=== PATIENT | male | born 1950 | race Caucasian/White ===

== ENCOUNTER → 2016-10-18 | Outpatient (CLI) | payer BC ==
[~2016-10-18] MED LIST: CEPH500C2 PO; HYDR-5688 PO; MULT-506 PO; PRAM0.129 PO
[2016-10-18 10:59] LABS: ALT/SGPT 27 U/L (12-78); BLOOD UREA NITROGEN 16 mg/dl (7-18); BUN/CREATININE RATIO 13.1 (10-20); CALCIUM 8.6 mg/dl (8.5-10.1); CARBON DIOXIDE 29 mmol/L (21-32); CHLORIDE 106 mmol/L (98-107); GLUCOSE 104 mg/dl (70-99); POTASSIUM 4.5 mmol/L (3.5-5.1); SODIUM 143 mmol/L (136-145)
[2016-10-18 11:02] LABS: ALB/GLOB RATIO 1.1 (0.9-2); ALKALINE PHOSPHATASE 94 U/L (45-117); AST/SGOT 19 U/L (15-37); CHOLESTEROL 173 mg/dl (0-200); CHOLESTEROL/HDL RATIO 3.8; HDL CHOLESTEROL 45 mg/dl; LDL CHOLESTEROL CALCULATED 78 mg/dl; TRIGLYCERIDES 250 mg/dl (0-150); VERY LOW DENSITY LIPOPROT CALC 50 mg/dl
== END | disposition home or self-care (01) ==
LOC: C.LAB1850 09:06
PROVIDERS: ATTEND Internal Medicine
DX: E78.1 Pure hyperglyceridemia (principal)

== ENCOUNTER → 2016-12-07 | Day surgery (SDC) | payer BC ==
[2016-12-02 13:47] VITALS: Ht 194.3 cm; Wt 100.0 kg
[~2016-12-07] VITALS: Ht 194.3 cm; Wt 100.0 kg
[~2016-12-07] MED LIST changes: +LIDOCAINE HCL 1% 20 ML VIAL ONE
--- NOTE | 2016-12-07 08:17 | History & Physical Bridge - [place] ---
H&P Re-Evaluation Bridge Note: I have examined the patient, reviewed the History & Physical and in the interval since the performance of the History & Physical I have noted the following changes of clinical significance: No changes noted
--- NOTE | 2016-12-07 08:20 | Discharge Instructions-SurgCtr ---
Discharge Instructions Date of Service December 07, 2016. Visit Reason for Visit: Epidermal Cyst Discharge Discharge Diagnosis / Problem: recurrent sebaceous cyst Discharge Goals Goal(s): Decrease discomfort, Improve function, Improve disease control Activity Recommendations Activity Limitations: as noted below Lifting Limitations: gradually increase as tolerated Exercise/Sports Limitations: until after follow-up appointment May Resume Sexual Activity: when tolerated Shower/Bathe: tomorrow Driving or Machine Use: no limitations SPECIAL CARE INSTRUCTIONS: * Cover incisions and change daily for comfort/drainage. * May use ibuprofen for pain as tolerated. * Expect some swelling and bruising. Call your doctor if: * Temperature above 101 degrees * Pain not relieved by pain medicine ordered * There is increased drainage or redness from any incision * You have any unanswered questions or concerns [phone]. FOLLOW UP VISIT: If not already scheduled, please call the office for a follow-up visit. for next week- some suture removal OFFICE PHONE NUMBER: Dr. Wynn Office Anesthesia . Post Anesthesia Instructions: If you have had General Anesthesia or IV Sedation: * Do not drive today. * Resume driving when surgeon permits. * Do not make important decisions or sign legal documents today. * Call surgeon for: 1. Temperature elevations greater than 101 degrees F. 2. Uncontrollable pain. 3. Excessive bleeding. 4. Persistent nausea and vomiting. 5. Medication intolerance (nausea, vomiting or rash). * For nausea and vomiting use only clear liquids such as: tea, soda, bouillon until nausea subsides, then gradually increase diet as tolerated. * If you have any concerns or questions, call your surgeon's office. If physician is unavailable and it is an emergency, call 911 or go to the nearest emergency room. . Diet Recommendations Home Diet: resume previous diet Pending Studies Studies pending at discharge: no Medical Emergencies . Who to Call and When: Medical Emergencies: If at any time you feel your situation is an emergency, please call 911 immediately. . Non-Emergent Contact Non-Emergency issues call your: Primary Care Provider, Surgeon . . "Provider Documentation" section prepared by Anthony Wynn. .
[2016-12-07 08:44] VITALS: BP 111/67; PULSE 65; TEMP 36.8; O2SAT 96
--- NOTE | 2016-12-07 08:55 | OPERATIVE REPORT ---
DATE OF OPERATION: 12/07/2016 PREOPERATIVE DIAGNOSIS: Recurrent sebaceous cyst. POSTOPERATIVE DIAGNOSIS: Same. NAME OF OPERATION: Excision of sebaceous cyst, 1.5 cm incision. STAFF SURGEON: Dr. Wynn. ANESTHESIA: 1% plain lidocaine. OPERATION AND FINDINGS: PROCEDURE: The patient was brought in the operating room and placed on the operating table in the prone position. His back was prepped and draped in usual fashion. He had a recurrent sebaceous cyst at an incision in the mid lower back. Skin and subcutaneous tissue were anesthetized using 1% plain lidocaine. An elliptical incision was made 1.5 cm around the site carrying dissection down through the dermis, excising the tissue. The tissue was then reapproximated using 4-0 nylon suture. Dressing applied and patient transferred to recovery room in stable condition. I attest to the content of the Intraoperative Record and any orders documented therein. Any exceptio ns are noted below.
== END | disposition home or self-care (01) ==
LOC: X.SURG 06:57
PROVIDERS: ATTEND Surgery
DX: L72.0 Epidermal cyst (principal); Z83.71 Family history of colonic polyps; Z80.42 Family history of malignant neoplasm of prostate

== ENCOUNTER → 2017-09-06 | Outpatient (CLI) | payer BC ==
[~2017-09-06] MED LIST changes: +CALC600T9 PO; -CEPH500C2 PO; -HYDR-5688 PO; -LIDOCAINE HCL 1% 20 ML VIAL ONE; +PRAM0.1212 PO; -PRAM0.129 PO
[2017-09-06 09:40] LABS: BASO % 0.3 %; BASO ABS # 0.02 K/uL (0-0.2); EOS ABS # 0.17 K/uL (0-0.5); HEMATOCRIT 43.5 % (42-52); HEMOGLOBIN 15.2 g/dL (14.0-18.0); IG# 0.03 K/uL (0.00-0.02); LYMPH % 24.3 %; LYMPH ABS # 1.39 K/uL (1.2-3.4); MEAN CELL VOLUME 88.8 fL (80-100); MEAN CORPUSCULAR HGB CONC 34.9 g/dl (32-36); MEAN PLATELET VOLUME 9.8 fL (7.4-10.4); MONO % 10.7 %; MONO ABS # 0.61 K/uL (0.11-0.59); NEUT % 61.2 %; PLATELET COUNT 237 K/uL (130-400); RED CELL DISTRIBUTION WIDTH CV 13.5 % (11.5-14.5); RED CELL DISTRIBUTION WIDTH SD 43.6 fL (36.4-46.3); WHITE BLOOD COUNT 5.72 K/uL (4.8-10.8)
[2017-09-06 09:55] LABS: HEMOGLOBIN A1C 5.5 % (4.5-5.6)
[2017-09-06 09:57] LABS: ALT/SGPT 31 U/L (12-78); AST/SGOT 17 U/L (15-37); BLOOD UREA NITROGEN 16 mg/dl (7-18); CALCIUM 9.1 mg/dl (8.5-10.1); CARBON DIOXIDE 28 mmol/L (21-32); CREATININE 1.29 mg/dl (0.60-1.40); GLUCOSE 105 mg/dl (70-99); POTASSIUM 3.9 mmol/L (3.5-5.1); SODIUM 139 mmol/L (136-145)
[2017-09-06 10:01] LABS: CHOLESTEROL 203 mg/dl (0-200); LDL CHOLESTEROL CALCULATED 102 mg/dl
== END | disposition home or self-care (01) ==
LOC: C.LAB 08:19
PROVIDERS: ATTEND Internal Medicine
DX: Z01.812 Encounter for preprocedural laboratory examination (principal); E78.00 Pure hypercholesterolemia, unspecified; R73.9 Hyperglycemia, unspecified; E53.8 Deficiency of other specified B group vitamins; E55.9 Vitamin D deficiency, unspecified; L27.0 Generalized skin eruption due to drugs and medicaments taken internally

== ENCOUNTER → 2017-09-13 | Day surgery (SDC) | payer BC ==
[2017-09-01 16:10] VITALS: Ht 195.6 cm; Wt 103.2 kg
[~2017-09-13] VITALS: Ht 195.6 cm; Wt 103.2 kg
[~2017-09-13] MED LIST changes: +ATROPINE SULFATE 0.1 MG/ML 5ML SYR IV PRN; +BUPIVACAINE 0.5 % 5 MG/1 ML MPF 30ML VIAL ONE; +CEFAZOLIN 2000MG IV PUSH 15 ML IV SCH; +CEPH500C2 PO; +EpHEDrine SULFATE INJ 50 MG/ML AMP IV PRN; +FENTANYL CITRATE INJ 50 MCG/1 ML 2 ML VIAL ONE; +HYDR-5688 PO; +HYDROCODONE/ACETAMIN 5/325MG TAB PO PRN; +IBUPROFEN 600 MG TAB PO PRN; +LACTATED RINGER'S 1000ML 1,000 ML IV SCH; +LIDOCAINE HCL 1% 20 ML VIAL ONE; +LIDOCAINE HCL 2% 2 ML VIAL (20MG/ML) ONE; +MIDAZOLAM HCL 1 MG/ML 2ML VIAL ONE; +PROPOFOL IV EMULSION 10 MG/ML 20 ML VIAL IV ONE; +SODIUM CHLORIDE 0.9% 1000ML 1,000 ML IV SCH
--- NOTE | 2017-09-13 06:50 | Discharge Instructions-SurgCtr ---
Discharge Instructions Date of Service Sep 13, 2017. Visit Reason for Visit: Upper Back Epidermoid Cyst Discharge Discharge Diagnosis / Problem: epidermoid cyst Discharge Goals Goal(s): Decrease discomfort, Improve function, Improve disease control Activity Recommendations Activity Limitations: as noted below Lifting Limitations: no more than 25 pounds Exercise/Sports Limitations: until after follow-up appointment May Resume Sexual Activity: when tolerated Shower/Bathe: tomorrow Driving or Machine Use: resume 1 day after discharge Anesthesia . Post Anesthesia Instructions: If you have had General Anesthesia or IV Sedation: * Do not drive today. * Resume driving when surgeon permits. * Do not make important decisions or sign legal documents today. * Call surgeon for: 1. Temperature elevations greater than 101 degrees F. 2. Uncontrollable pain. 3. Excessive bleeding. 4. Persistent nausea and vomiting. 5. Medication intolerance (nausea, vomiting or rash). * For nausea and vomiting use only clear liquids such as: tea, soda, bouillon until nausea subsides, then gradually increase diet as tolerated. * If you have any concerns or questions, call your surgeon's office. If physician is unavailable and it is an emergency, call 911 or go to the nearest emergency room. . Instructions / Follow-Up Instructions / Follow-Up SPECIAL CARE INSTRUCTIONS: * Cover incisions and change daily for comfort/drainage. * May use ibuprofen for pain as tolerated. * Expect some swelling and bruising. Call your doctor if: * Temperature above 101 degrees * Pain not relieved by pain medicine ordered * There is increased drainage or redness from any incision * You have any unanswered questions or concerns [phone]. FOLLOW UP VISIT: If not already scheduled, please call the office for a follow-up visit. for next week- wound check and some suture removal OFFICE PHONE NUMBER: Dr. Wynn Office Diet Recommendations Home Diet: resume previous diet Pending Studies Studies pending at discharge: no Medical Emergencies . Who to Call and When: Medical Emergencies: If at any time you feel your situation is an emergency, please call 911 immediately. . Non-Emergent Contact Non-Emergency issues call your: Primary Care Provider, Surgeon . . "Provider Documentation" section prepared by Anthony Wynn. .
--- NOTE | 2017-09-13 07:20 | [facility] Operative Report ---
Operative Report Operative Date Sep 13, 2017. Pre-Operative Diagnosis Upper Back Epidermoid Cyst Post-Operative Diagnosis Same as pre-op Procedure(s) Performed Upper Back Epidermoid Cyst Excision Surgeon Records Assistant Surgeon(s) None Estimated Blood Loss 5ML Findings scar tissue, h/o infection Specimens A.Upper back Epidermoid Cyst Drains None Anesthesia Type MAC Complication(s) none Disposition Recovery Room / PACU I attest to the content of the Intraoperative Record and any orders documented therein. Any exceptions are noted below.
[2017-09-13 07:29] VITALS: TEMP 36.8
--- NOTE | 2017-09-13 07:50 | Anesthesia Progress Nt - [facility] ---
Anesthesia Post Op Note Date & Time Sep 13, 2017 at 07:50 Vital Signs Pain Intensity: 0 Vital Signs Past 12 Hours Date Time Temp Pulse Resp B/P (MAP) Pulse Ox O2 Delivery O2 Flow Rate FiO2 09/13/17 07:29 36.8 66 16 144/83 (103) 94 Room Air 09/13/17 06:26 36.4 75 18 151/90 (110) 94 Room Air Notes Mental Status: alert / awake / arousable, participated in evaluation Pt Amnestic to Procedure: Yes Nausea / Vomiting: adequately controlled Pain: adequately controlled Airway Patency, RR, SpO2: stable & adequate BP & HR: stable & adequate Hydration State: stable & adequate Anesthetic Complications: no major complications apparent
[2017-09-13 08:00] VITALS: BP 109/71; PULSE 94; O2SAT 95
--- NOTE | 2017-09-13 08:02 | OPERATIVE REPORT ---
DATE OF OPERATION: 09/13/2017 NAME OF OPERATION: Excision of epidermoid cyst from the back. PREOPERATIVE DIAGNOSIS: Epidermoid cyst with a history of infection. POSTOPERATIVE DIAGNOSIS: Same. STAFF SURGEON: Anthony Wynn MD. ANESTHESIA: 1% plain lidocaine with sedation. DESCRIPTION OF PROCEDURE: The patient was brought into the operating room and placed on the operating table in the prone position. His back was then prepped and draped in the usual fashion. Using 1% plain lidocaine, skin and subcutaneous tissue around the area of previous drainage were anesthetized. Incision made in an elliptical fashion, carrying dissection down into the deep subcutaneous tissue, excising the tissue. It was approximately 2 x 1 cm in area. Deep tissue was reapproximated using 2-0 chromic suture and then the skin reapproximated using 4-0 nylon suture. Dressing applied and the patient transferred to recovery room in stable condition. I attest to the content of the Intraoperative Record and any orders documented therein. Any exception s are noted below.
== END | disposition home or self-care (01) ==
LOC: X.SURG 06:12
PROVIDERS: ATTEND Surgery
DX: L72.0 Epidermal cyst (principal); E78.00 Pure hypercholesterolemia, unspecified; E78.1 Pure hyperglyceridemia; G47.33 Obstructive sleep apnea (adult) (pediatric); E53.8 Deficiency of other specified B group vitamins; E55.9 Vitamin D deficiency, unspecified; Z83.6 Family history of other diseases of the respiratory system; Z80.1 Family history of malignant neoplasm of trachea, bronchus and lung; Z82.49 Family history of ischemic heart disease and other diseases of the circulatory system; Z80.42 Family history of malignant neoplasm of prostate

== ENCOUNTER 2019-01-04 17:48 | Observation (INO) ==
[2019-01-04] MEDS ORDERED: cefTRIAXone SODIUM 2,000 MG in DEXTROSE 5% 50 ML IV STA (18:15)
[2019-01-04 18:46] LABS: Basophils # (auto) 0.02 K/uL (0-0.2); Basophils % (auto) 0.3 %; Eosinophils % (auto) 2.5 %; Hematocrit (blood only) 39.3 % (42-52); Hemoglobin 13.3 g/dL (14.0-18.0); Immature Granulocytes # (auto) 0.03 K/uL (0.00-0.02); Immature Granulocytes % (auto) 0.4 %; Lymphocytes # (auto) 1.64 K/uL (1.2-3.4); Lymphocytes % (auto) 20.6 %; Mean Corpuscular Hgb Conc 33.8 g/dL (32-36); Mean Platelet Volume 9.1 fL (7.4-10.4); Monocytes # (auto) 1.17 K/uL (0.11-0.59); Monocytes % (auto) 14.7 %; Neutrophils % (auto) 61.5 %; Platelet Count 221 K/uL (130-400); RDW Coefficient of Variation 13.9 % (11.5-14.5); RDW Standard Deviation 46.2 fL (36.4-46.3); Red Blood Count 4.32 M/uL (4.7-6.1); White Blood Count 7.96 K/uL (4.8-10.8)
[2019-01-04 19:03] LABS: BUN Creatinine Ratio 13.6 (10-20); Calcium 9.1 mg/dl (8.5-10.1); Creatinine Clr Calc Pharmacy 73.4 ml/min; Est GFR (Non-African American) 60.4; Potassium 4.1 mmol/L (3.5-5.1)
--- NOTE | 2019-01-04 19:10 | Emergency Department Note ---
Entered by Carmita Khan acting as a scribe for Medhat Ashford DO History of Present Illness General Chief complaint: Skin Problem Stated complaint: CYST ON NECK Time Seen by Provider: 01/04/19 18:03 Source: patient Limitations: no limitations History of Present Illness Provider complaint: Skin Problem Onset (ago): month(s) 1 Location: neck Radiation: non-radiation Severity: similar to prior episodes (+cysts on back) Maximum Pain Intensity: 6 Exacerbated By: + movement (+moving neck) Associated symptoms: + other (+neck pain with movement) The patient is a 68 year old male who presents to the Emergency Room with complaints of a skin problem that began 1 month prior to arrival. The patient st ates that he has a lump on his neck and the patient states that it has doubled in size since 1 month ago. The patient states that it is painful to move his neck. The patient states that he had a US done 5 days prior to arrival in the ED. The patient states that Dr. Gupta-Internal Medicine recommended that the patient come to the ED. The patient states that he has a history of cysts that have gotten infected but states that the cysts were on his back. Home Medications Home Medications Medication Instructions Recorded Confirmed Type ibuprofen 600 mg tablet 600 mg PO Q6H PRN 12/20/18 01/04/19 History pramipexole 0.25 mg tablet 0.5 mg PO HS tab 12/20/18 01/04/19 History sildenafil (antihypertensive) 20 20 mg PO TID 12/20/18 01/04/19 History mg tablet Allergies Allergy/AdvReac Type Severity Reaction Status Date / Time No Known Allergies Allergy Unverified 01/04/19 18:07 Past Med/Surg History Medical History Hyperlipidemia Sebaceous cyst (Resolved) Lyme disease Surgical History History of excision of pilonidal cyst Family History Mother Lung cancer Father Lung cancer Other Coronary heart disease Prostate cancer Social History Preferred Language: Sammarinese Communication Ability: Effective Feels Safe at Home: Yes Smoking Status: Never smoker Hx Alcohol Use: No Hx Substance Use: No Review of Systems See HPI for pertinent positives & negatives. and A total of 10 systems reviewed and were otherwise negative Physical Exam Vital Signs Vital Signs - 24 hr 01/04/19 17:57 01/04/19 19:20 Temperature 36.9 C 37.0 C Temperature Source Oral Oral Sepsis Recent Fever Within 48 Hours No Sepsis New/Unexplained Change in Mental Status No Sepsis Action Taken by Nursing No Action Required Pulse Rate 87 Pulse Rate [Finger] 78 Respiratory Rate 18 20 Blood Pressure 143/80 H Blood Pressure [Left Arm] 120/59 L Blood Pressure Mean 101 Blood Pressure Mean [Left Arm] 79 Pulse Oximetry 98 99 Oxygen Delivery Method Room Air Room Air CONSTITUTIONAL/VITAL SIGNS: Reviewed / noted above. GENERAL: Non-toxic in appearance. INTEGUMENTARY: Warm, dry, and [place]. HEAD: Normocephalic. EYES: without scleral icterus or trauma. ENT/OROPHARYNX: clear and moist. Right lateral neck reveals some mild erythema, soft tissue induration, and mild tenderness. LYMPHADENOPATHY/NECK: Is supple without lymphadenopathy or meningismus. RESPIRATORY: Lungs clear and equal. CARDIOVASCULAR: Regular rate and rhythm. GI/ABDOMEN: Soft and nontender. No organomegaly or pulsatile mass. No rebound or guarding. Normal bowel sounds. EXTREMITIES: Warm and well perfused. BACK: No CVA tenderness. NEUROLOGICAL: Intact without focal deficits. PSYCHIATRIC: normal affect. MUSCULOSKELETAL: Normally developed with good muscle tone. Course 1805: The patient was evaluated in room B8, and a complete history and physical examination were performed. 0: I checked on the patient. The patient was updated on their imaging and lab results. 1939: I checked on the patient. The patient was updated on their imaging and lab results. 2019: I discussed the [facility] who states that the patient should be admitted on IV antibiotics by medicine services. 2045: I discussed the patient's case with Dr. Peyman [facility] Hospitalist who will evaluate the patient for further hospitalization. Consultations Consultation #1: Dr. Maximo Dey Otolaryngology Time: 20:20 Consultation #2: Dr. Peyman Block [facility] Hospitalist Time: 20:46 Administered Medications Discontinued Medications Ceftriaxone Sodium 2,000 mg/ (Dextrose) 70 mls @ 100 mls/hr IV NOW STA Stop: 01/04/19 18:56 Last Infusion: 01/04/19 19:48 Dose: 0 mls/hr Documented by: [id number] Admin: 01/04/19 19:16 Dose: 100 mls/hr Documented by: [id number] Medical Decision Making Differential Diagnosis Differential diagnosis: Etiologies such as cellulitis, abscess, osteomyelitis, MRSA infection, DVT, necrotizing fasciitis, dermatitis, drug eruption, as well as others were entertained. Medical Records Attestation: I reviewed the patient's medical records. Home Medications Current Medication List: was personally reviewed by de Laboratory Data Attestation: I reviewed the patient's lab results. Result diagrams: 01/04/19 18:31 01/04/19 18:31 Lab Results 01/04/19 01/04/19 Range/Units 18:31 18:31 WBC 7.96 (4.8-10.8) K/uL RBC 4.32 L (4.7-6.1) M/uL Hgb 13.3 L (14.0-18.0) g/dL Hct 39.3 L (42-52) % MCV 91.0 (80-100) fL MCH 30.8 (25-34) pg MCHC 33.8 (32-36) g/dL RDW Std Deviation 46.2 (36.4-46.3) fL RDW Coeff of Shukri 13.9 (11.5-14.5) % Plt Count 221 (130-400) K/uL MPV 9.1 (7.4-10.4) fL Immature Gran % (Auto) 0.4 % Neut % (Auto) 61.5 % Lymph % (Auto) 20.6 % [place] % (Auto) 14.7 % Eos % (Auto) 2.5 % Baso % (Auto) 0.3 % Immature Gran # (Auto) 0.03 H (0.00-0.02) K/uL Neut # (Auto) 4.90 (1.4-6.5) K/uL Lymph # (Auto) 1.64 (1.2-3.4) K/uL [place] # (Auto) 1.17 H (0.11-0.59) K/uL Eos # (Auto) 0.20 (0-0.5) K/uL Baso # (Auto) 0.02 (0-0.2) K/uL Sodium 144 (136-145) mmol/L Potassium 4.1 (3.5-5.1) mmol/L Chloride 107 (98-107) mmol/L Carbon Dioxide 31 (21-32) mmol/L Anion Gap 6.0 (3-11) BUN 17 (7-18) mg/dl Creatinine 1.23 (0.6-1.4) mg/dl Est Cr Clr Drug Dosing 73.4 ml/min Est GFR ( Amer) 70.0 Est GFR (Non-Af Amer) 60.4 BUN/Creatinine Ratio 13.6 (10-20) Glucose 107 H (70-99) mg/dl Calcium 9.1 (8.5-10.1) mg/dl Imaging Data Radiologist's Impression: Radiology results as stated below per my review and the radiologist's interpretation: NECK ULTRASOUND CLINICAL HISTORY: Right-sided neck pain and swelling. COMPARISON STUDY: Neck ultrasound December 30, 2018. FINDINGS: Deep to the right sternocleidomastoid muscle, note is made of a complex small elongated hypoechoic abnormality that measures 3.5 x 0.7 x 1.2 cm. This was not evident on exam of December 30, 2018. No significant adjacent hyperemia is noted. The adjacent soft tissues may be hyperechoic. A few adjacent smaller lymph nodes are noted. IMPRESSION: 3.5 x 0.7 x 1.2 cm complex small elongated fluid collection deep to the right sternocleidomastoid muscle. This is nonspecific and may reflect phlegmon, developing abscess or hematoma. Electronically signed by: Johnson Monroy M.D. 01/04/2019 7:24 PM Blood Pressure Blood Pressure Findings: Elevated blood pressure MDM Narrative The patient is a 68-year-old male who presents to the ED with a chief complaint of a increasing discomfort in his right lateral neck. The patient states that he had some discomfort there since early November. He had an ultrasound 5 days ago that showed a small cyst. He states that since that time, the size of the swelling has increased and he has some more discomfort in the area. He came in for evaluation of this. On my evaluation, he appears to have a cellulitic area in the left lateral neck. This could be related to an ingrown hair. The patient started on IV Rocephin. His CBC and chemistry panel was normal. A repeat ultrasound for comparison showed a 3.5 x 0.7 x 1.2 complex fluid collection deep to the right sternocleidomastoid muscle concerning for a phlegmon, developing abscess or hematoma. This was not present or has enlarged compared to the previous ultrasound 5 days ago. The patient was given IV Rocephin here. I spoke with Dr. Barnes, ENT specialist, about this patient. He recommends the patient be admitted for IV antibiotics, consultation with infectious disease and possibly drainage if abscess develops. I spoke with Dr. Morley, who will see the patient. Impression & Plan Cellulitis and abscess of neck Discharge Plan Visit Data Chief Complaint: Skin Problem Stated Complaint: CYST ON NECK ED Provider: Medhat Ashford Discharge Problem: Cellulitis and abscess of neck Forms Stand Alone Forms: My [facility] Prescriptions Prescriptions: No Action ibuprofen 600 mg tablet 600 mg PO Q6H PRN (Reason: Pain) RF: 0 pramipexole 0.25 mg tablet 0.5 mg PO HS RF: 0 sildenafil (antihypertensive) 20 mg tablet 20 mg PO TID RF: 0 The scribe's documentation has been prepared under my direction and personally reviewed by me in its entirety. I confirm that the note above accurately reflec ts all work, treatment, procedures, and medical decision making performed by me.
--- NOTE | 2019-01-04 19:26 | Ultrasound Report ---
NECK ULTRASOUND CLINICAL HISTORY: Right-sided neck pain and swelling. COMPARISON STUDY: Neck ultrasound December 30, 2018. FINDINGS: Deep to the right sternocleidomastoid muscle, note is made of a complex small elongated hyp oechoic abnormality that measures 3.5 x 0.7 x 1.2 cm. This was not evident on exam of December 30, 2018. No significant adjacent hyperemia is noted. The adjacent soft tissues may be hyperechoic. A few adjac ent smaller lymph nodes are noted. IMPRESSION: 3.5 x 0.7 x 1.2 cm complex small elongated fluid collection deep to the right sternoclei domastoid muscle. This is nonspecific and may reflect phlegmon, developing abscess or hematoma. Electronically signed by: Johnson Monroy M.D. 01/04/2019 7:24 PM
[2019-01-04] MEDS ORDERED: MAGNESIUM HYDROXIDE SUSP 30 ML UDC PO PRN (20:58)
[2019-01-04] MEDS ORDERED: POLYETHYLENE (MIRALAX) 17 GM PACK PO PRN (20:58)
[2019-01-04] MEDS ORDERED: ZOLPIDEM TARTRATE 5 MG TAB PO PRN (20:58)
[2019-01-04] MEDS ORDERED: ACETAMINOPHEN 325 MG TAB PO PRN (20:58)
[2019-01-04] MEDS ORDERED: VANCOMYCIN CONSULT ACTIVE PRN (20:58)
[2019-01-04] MEDS ORDERED: ONDANSETRON INJ 2 MG/ML 2 ML VIAL IV PRN (20:58)
[2019-01-04] MEDS ORDERED: ALUMINUM/MAGNESIUM SUSP 30 ML UDC PO PRN (20:58)
--- NOTE | 2019-01-04 21:22 | History & Physical Report ---
Date of Service January 04, 2019 Assessment & Plan (1) Cellulitis and abscess of neck: 68 y/o M Hx MATT, RLS. Has had R neck pain which has been progressive for 2 weeks. He thought this was triggered by sleeping on a firm pillow at a hotel a few weeks ago. He visited his primary MD on 12/20 and then again on 01/03. There was concern for a sternocleidomastoid rupture due to swelling of the area and he was sent for an ultrasound. The results demonstrated a complex small elongated fluid collection deep to the right sternocleidomastoid muscle which may reflect a phlegmon, developing abscess or hematoma. the pt has not had any rigors or fevers. He is admitted for IV antibiotics and evaluation by the head and neck surgeon. 1) Suspected abscess of R neck - to be evaluated by surgery and ID. Placed on Clindamycin and Vanc. Analgesics/antiinflammatories provided. 2) RLS - cont Mirapex 3) MATT - has brought his own CPAP Full code - SCDs Total time for this admit including review of labs, meds, imaging, records - discussion with pt and ER attendning - 36 min History of Present Illness Chief Complaint: R neck pain and swelling Primary Care Provider: Ambrocio Gupta MD 68 y/o M Hx MATT, RLS. Has had R neck pain which has been progressive for 2 weeks. He thought this was triggered by sleeping on a firm pillow at a hotel a few weeks ago. He visited his primary MD on 12/20 and then again on 01/03. There was concern for a sternocleidomastoid rupture due to swelling of the area and he was sent for an ultrasound. The results demonstrated a complex small elongated fluid collection deep to the right sternocleidomastoid muscle which may reflect a phlegmon, developing abscess or hematoma. the pt has not had any rigors or fevers. He is admitted for IV antibiotics and evaluation by the head and neck surgeon. PMH: 1) MATT 2) RLS Denies prior surgery Social: Does not drink or smoke, retired. Family: Both parents due to lung [place] Allergies Allergy/AdvReac Type Severity Reaction Status Date / Time No Known Allergies Allergy Unverified 01/04/19 18:07 Home Medications Home Medications Medication Instructions Recorded Confirmed Type ibuprofen 600 mg tablet 600 mg PO Q6H PRN 12/20/18 01/04/19 History pramipexole 0.25 mg tablet 0.5 mg PO HS tab 12/20/18 01/04/19 History sildenafil (antihypertensive) 20 20 mg PO TID 12/20/18 01/04/19 History mg tablet Past Med/Surg History Medical History Hyperlipidemia Sebaceous cyst (Resolved) Lyme disease Surgical History History of excision of pilonidal cyst Family History Mother Lung cancer Father Lung cancer Other Coronary heart disease Prostate cancer Social History Preferred Language: Frisian Communication Ability: Effective Feels Safe at Home: Yes Smoking Status: Never smoker Hx Alcohol Use: No Hx Substance Use: No Review of Systems Review of Systems: Gen: Denies fevers, night sweats, rigors, fatigue, malaise, weight loss/gain ENT: Denies congestion, throat pain, hearing loss - R neck pain and swelling as above Eyes: Denies acute visual changes CV: Denies CP, palpitations Pulmonary: Denies SOB, cough, wheezing GI: Denies N/V, diarrhea, constipation Neuro: Denies acute or unilateral weakness, acute gait impairment, headache or acute visual changes Endocrine: Denies polydipsia, polyuria Skin: Some erythema on R neck Physical Exam Physical Exam: General: AAO x 3, no distress Eyes: ELIZABETH, EOMI Head and neck: Normocephalic, atraumatic, No JVD, neck is supple. Chest/heart: Nontender, S1,2, RRR, no murmurs, no gallops Lungs: CTAB, no wheezing or crackles Abdomen: Nontender, nondistended, BS+ Neuro: AAO x 3, speech is clear, no unilateral weakness or loss of sensation, coordination intact Musculoskeletal: There is swelling, erythema and tenderness of the R neck Skin: No acute rashes or ulcers Extremities: No clubbing, cyanosis, edema Results & Data Vital Signs (Past 12 Hours) Vital Signs Temp Pulse Pulse Resp BP BP Pulse Ox 01/04/19 19:20 98.6 F 78 20 120/59 L 99 01/04/19 17:57 98.4 F 87 18 143/80 H 98 Diagnostic Findings US of neck: 3.5 x 0.7 x 1.2 cm complex small elongated fluid collection deep to the right sternocleidomastoid muscle. This is nonspecific and may reflect phlegmon, developing abscess or hematoma. PG Care Time/CCT Total # of Minutes Spent Total Time Spent with Patient: Total time spent is greater than 50% in coordination of care (as documented) at patient's floor/unit and/or counseling patient:
[2019-01-04] MEDS ORDERED: VANCOMYCIN HCL 2,500 MG in SODIUM CHLORIDE 0.9% 500 ML IV ONE (22:00)
[2019-01-04] MEDS ORDERED: TRAMADOL HCL 50 MG TABLET PO PRN (22:14)
[2019-01-04] MEDS ORDERED: KETOROLAC TROMETHAMINE 15 MG/ML VIAL IV PRN (22:14)
[2019-01-04] MEDS ORDERED: Nursing to Pharmacy Communication ONE (22:21)
[2019-01-04] MEDS ORDERED: PRAMIPEXOLE DIHYDROCHLO 0.25 MG TAB PO SCH (23:00)
[2019-01-04] MEDS: CLINDAMYCIN 600 MG in DEXTROSE 5% 50 ML IV SCH (23:42)
[2019-01-05] MEDS: D5W AND LACTATED RINGERS 1,000 ML IV SCH ×2 (02:22→08:36)
[2019-01-05] MEDS: CLINDAMYCIN 600 MG in DEXTROSE 5% 50 ML IV SCH ×3 (05:49→22:02)
--- NOTE | 2019-01-05 08:42 | Pharmacy Report ---
Pharmacy Abx Initial Consult - Date of Service January 05, 2019 - Pharmacy Dosing Scope Date of Consult: 01/04/19 Consultation requested by: Dr. Morley Pharmacy is consulted to initiate vancomycin IV dosing therapy, order appropriate labs and adjust drug dose/frequency. - Subjective The patient is a 68 year old M admitted on 01/04/19 20:58 with a possible neck abscess. - Objective Height: 6 ft 5 in Weight: 102.5 kg Vital Signs (Past 12hrs): Vital Signs Temp Pulse Resp BP Pulse Ox 01/05/19 07:21 36.9 C 77 18 118/71 97 01/04/19 22:29 36.6 C 77 20 149/88 H 99 01/04/19 22:14 36.6 C 77 20 149/88 H 99 01/04/19 21:14 80 18 158/92 H 99 Lab Results (24hrs): Laboratory Tests (24 Hours) 01/04/19 01/04/19 18:31 18:31 WBC 7.96 Neut # (Auto) 4.90 Creatinine 1.23 Est Cr Clr Drug Dosing 73.4 - Risk Factors for Resistance no known risk factors for resistance - Assessment & Plan Assessment 68 year old M with a possible neck abscess seen on CT scan. Plan vancomycin for treatment of neck abscess Vancomycin IV * Estimated PK Parameters: Vd 0.7 L/kg, Mirza 0.065 hr-1, t1/2 10.7 hr * Loading dose: 2500 mg (25 mg/kg) * Maintenance dose: 1500 mg IV (14.6 mg/kg) every 12 hours * Goal trough level for abscess with no risk factors for MRSA: ~15 mcg/mL * Trough level ordered for 01/06/19 Pharmacy will continue to follow and will adjust dose/frequency as necessary. Thank you.
[2019-01-05] MEDS: VANCOMYCIN HCL 1,500 MG in SODIUM CHLORIDE 0.9% 500 ML IV SCH ×2 (10:46→22:02)
--- NOTE | 2019-01-05 10:58 | Infectious Disease Consult ---
Date of Consultation January 05, 2019 Assessment & Plan (1) Cellulitis and abscess of neck: no evidence of cellulitis currently but pt does report improvement since starting abx. Surgery eval pending, continue IV abx pending surgical plan. he is anxious to go home, if he is to be d/c would suggest Clinda 300mg po tid x 14 days. History of Present Illness Attending Physician: Moshe Wilcox pt admitted after ultrasoun from 01/04 revealed a right SCM collection measuring 3.5x0,7x1.2 cm. He had a recent ultrasound as an outpatient on 12/30 which was negative for collection. He states he had neck pain starting in November - thought he pulled a muscle, saw pcp was given steroids and muscle relaxer, took full course, no significant improvement. followed back with pcp and underwent ultrasound on 12/30 - no abscess/collection noted. He went to [place] last week on vacation and was feeling well. he was then told by pcp upon return home to have repeat imaging, this was done yesterday and collection noted, admitted for IV abx and head and neck surgery eval, npo pending eval. placed on vanco and clinda and tolerating well. States swelling in neck much improved today, afebrile since admission. no decreased rom in neck, denies pain. no open areas, no trauma to area, no bleeding or drainage noted. no oral pain. wbc 7.9, no cultures obtained. pt asking to be d/c to home as he has plans to travel with to [place] this weekend for a high school reunion. Currently denies f/c. no cough, cp, sob, no difficulty swallowing, no pain with neck movement, no abd pain, no n/v/d. Allergies Allergy/AdvReac Type Severity Reaction Status Date / Time No Known Allergies Allergy Unverified 01/04/19 18:07 Home Medications Home Medications Medication Instructions Recorded Confirmed Type ibuprofen 600 mg tablet 600 mg PO Q6H PRN 12/20/18 01/04/19 History pramipexole 0.25 mg tablet 0.5 mg PO HS tab 12/20/18 01/04/19 History sildenafil (antihypertensive) 20 20 mg PO TID 12/20/18 01/04/19 History mg tablet Patient History Medical History Arthritis DJD (degenerative joint disease) Knees Hyperlipidemia MATT (obstructive sleep apnea) Sebaceous cyst (Resolved) Lyme disease Surgical History History of excision of pilonidal cyst Family History Mother Lung cancer Father Lung cancer Other Coronary heart disease Prostate cancer Social History Preferred Language: Pakistani Communication Ability: Effective Exercise Physiology Professor Required: No Beliefs That Will Affect Care: None Current Living Situation: Spouse Other Information That Helps Us Care for You: No Feels Safe at Home: Yes Safety Concerns: Feels Safe At This Time Smoking Status: Never smoker Do You Dip or Chew Tobacco: No Second Hand Exposure: Yes (as a child) Hx Alcohol Use: No Hx Substance Use: No Review of Systems Review of Systems: All systems reviewed & are unremarkable except as noted in HPI & below Physical Exam Constitutional: WD/WN, vitals as above Eyes: PERRL, conjunctivae normal, anicteric sclerae ENMT: external ear and nose normal, oropharynx normal Neck: trachea midline, no thyromegaly right neck min swelling, no open areas, no warmth, non tender, no eryhtema, no induration Respiratory: normal respiratory effort, lungs clear to auscultation Cardiovascular: RRR, no murmur, no edema Gastrointestinal (Abdomen): normal bowel sounds, soft, nontender, no hepatosplenomegaly Musculoskeletal: no cyanosis or clubbing, extremities motor strength 5/5 Skin: no rashes, warm and dry Psychiatric: A+Ox3, euthymic affect Results & Data Vital Signs (Past 12 Hours) Vital Signs Temp Pulse Resp BP Pulse Ox 01/05/19 07:21 36.9 C 77 18 118/71 97
[2019-01-05] MEDS ORDERED: PRAMIPEXOLE DIHYDROCHLO 0.25 MG TAB PO SCH (21:00)
--- NOTE | 2019-01-05 23:22 | Hospitalist Progress Note ---
Date of Service January 05, 2019 Assessment & Plan (1) Cellulitis and abscess of neck: 68 y/o M Hx MATT, RLS. Has had R neck pain which has been progressive for 2 weeks. He thought this was triggered by sleeping on a firm pillow at a hotel a few weeks ago. He visited his primary MD on 12/20 and then again on 01/03. There was concern for a sternocleidomastoid rupture due to swelling of the area and he was sent for an ultrasound. The results demonstrated a complex small elongated fluid collection deep to the right sternocleidomastoid muscle which may reflect a phlegmon, developing abscess or hematoma. the pt has not had any rigors or fevers. He is admitted for IV antibiotics and evaluation by the head and neck surgeon. 1) Suspected abscess of R neck - to be evaluated by surgery and ID. Placed on Clindamycin and Vanc. Analgesics/antiinflammatories provided. Appreciate input from ID. WILL CONTIUE ON ANTIBIOTICS, IF HE CONTIUES TO IMPROVE OVERNIGHT, THEN WILL DISCHARGE IN THE MORNING. Patient will followup with ENT NEXT TUESDAY. 2) RLS - cont Mirapex 3) MATT - has brought his own CPAP Full code - SCDs Spent 35 minutes in management of patient. Subjective This is a pleasant 61-year-old male who is here for neck swelling. Patient reports that today his neck is less swollen and his pain has decreased on his right side. Patient denies any difficulty swallowing fever chills nausea vomiting. Patient is accompanied by his who has multiple questions about his condition. These questions were answered to her satisfaction. Patient and are interested in being discharged tomorrow because they would like to be able to attend their 50th high school reunion in [place] tomorrow night if possible. I explained to the family that ENT will follow up with them as an outpatient in about 7 days as they would prefer conservative management. Review of Systems Review of Systems: Gen: Denies fevers, night sweats, rigors, fatigue, malaise, weight loss/gain ENT: Denies congestion, throat pain, hearing loss - R neck pain and swelling as above Eyes: Denies acute visual changes CV: Denies CP, palpitations Pulmonary: Denies SOB, cough, wheezing GI: Denies N/V, diarrhea, constipation Neuro: Denies acute or unilateral weakness, acute gait impairment, headache or acute visual changes Endocrine: Denies polydipsia, polyuria Skin: Some erythema on R neck Physical Exam Physical Exam: General: AAO x 3, no distress Eyes: ELIZABETH, EOMI Head and neck: Normocephalic, atraumatic, No JVD, neck is supple. Mild swelling on right side, no erythema noted, non tender Chest/heart: Nontender, S1,2, RRR, no murmurs, no gallops Lungs: CTAB, no wheezing or crackles Abdomen: Nontender, nondistended, BS+ Neuro: AAO x 3, speech is clear, no unilateral weakness or loss of sensation, coordination intact Musculoskeletal: There is swelling, erythema and tenderness of the R neck Skin: No acute rashes or ulcers Extremities: No clubbing, cyanosis, edema Results & Data Vital Signs (Past 12 Hours) Vital Signs Temp Pulse Resp BP Pulse Ox 01/05/19 16:04 36.9 C 84 20 126/74 98 PG Care Time/CCT Total # of Minutes Spent Total Time Spent with Patient: Total time spent is greater than 50% in coordination of care (as documented) at patient's floor/unit and/or counseling patient:
[2019-01-06 06:47] LABS: Creatinine Clr Calc Pharmacy 75.9 ml/min; Est GFR (African American) 72.8; Est GFR (Non-African American) 62.8
[2019-01-06] MEDS ORDERED: CLINDAMYCIN HCL 150 MG CAP PO SCH ×2 (07:00)
--- NOTE | 2019-01-11 10:39 | Discharge Summary ---
Date of Service January 06, 2019 Admission HPI Per Admitting Provider 68 y/o M Hx MATT, RLS. Has had R neck pain which has been progressive for 2 weeks. He thought this was triggered by sleeping on a firm pillow at a hotel a few weeks ago. He visited his primary MD on 12/20 and then again on 01/03. There was concern for a sternocleidomastoid rupture due to swelling of the area and he was sent for an ultrasound. The results demonstrated a complex small elongated fluid collection deep to the right sternocleidomastoid muscle which may reflect a phlegmon, developing abscess or hematoma. the pt has not had any rigors or fevers. He is admitted for IV antibiotics and evaluation by the head and neck surgeon. PMH: 1) MATT 2) RLS Denies prior surgery Social: Does not drink or smoke, retired. Family: Both parents due to lung CA Principal Diagnosis Abscess of neck Discharge Exam General: AAO x 3, no distress Eyes: ELIZABETH, EOMI Head and neck: Normocephalic, atraumatic, No JVD, neck is supple. Mild swelling on right side, no erythema noted, non tender Chest/heart: Nontender, S1,2, RRR, no murmurs, no gallops Lungs: CTAB, no wheezing or crackles Abdomen: Nontender, nondistended, BS+ Neuro: AAO x 3, speech is clear, no unilateral weakness or loss of sensation, coordination intact Musculoskeletal: There is decreased swelling, erythema and tenderness of the R neck Skin: No acute rashes or ulcers Extremities: No clubbing, cyanosis, edema Discharge Data Allergies Allergy/AdvReac Type Severity Reaction Status Date / Time No Known Allergies Allergy Unverified 01/04/19 18:07 Consultations 01/04/19 20:39 ED Decision to Admit Stat 01/04/19 22:14 Consult Infectious Diseases Routine Consult Otolaryngology (Head and Neck) Routine Ordered Studies 01/04/19 18:10 soft tissue head and neck Stat Hospital Course (1) Cellulitis and abscess of neck: 68 y/o M Hx MATT, RLS. Has had R neck pain which has been progressive for 2 weeks. He thought this was triggered by sleeping on a firm pillow at a hotel a few weeks ago. He visited his primary MD on 12/20 and then again on 01/03. There was concern for a sternocleidomastoid rupture due to swelling of the area and he was sent for an ultrasound. The results demonstrated a complex small elongated fluid collection deep to the right sternocleidomastoid muscle which may reflect a phlegmon, developing abscess or hematoma. the pt has not had any rigors or fevers. He is admitted for IV antibiotics and evaluation by the head and neck surgeon. 1) Suspected abscess of R neck - to be evaluated by surgery and ID. Placed on Clindamycin and Vanc. Analgesics/antiinflammatories provided. Appreciate input from ID. On day of discharge, patient will be placed on clidamycin by mouth. Swelling has decreased in size. Will followup with ENT NEXT TUESDAY. 2) RLS - cont Mirapex 3) MATT - has brought his own CPAP Full code - SCDs Total Time Total Time Spent Total Time Spent (In Minutes): 35 Total Time Includes: Examination of the Patient, Discharge Planning and Medication Reconciliation Discharge Plan Discharge Items Patient Disposition: Home - Self-Care Reason For Visit: ABSCESS ON NECK Discharge Diagnosis: inflammation of neck/ possible infection Discharge Goals: Decrease discomfort Activity: Resume your previous activity Non-emergency contact: Primary Care Provider Call non-emergency contact if: you have any medication questions Follow-up/Referrals: ProAmbrocio MD [Primary Care Provider] - Ady Pressley MD [Surgeon] - 01/12/19 10:15 am (An appt. was made for you with Dr. Pressley next January 12 at 10:15am.) Diet: Regular Addtl Provider Instructions: Take antibiotics with meals. Followup with ENT in 6 days. Prescriptions: New clindamycin HCl 150 mg Capsule 300 mg PO Q6H 8 Days Qty: 64 RF: 0 No Action ibuprofen 600 mg tablet 600 mg PO Q6H PRN (Reason: Pain) Qty: 40 RF: 1 pramipexole 0.25 mg tablet 0.5 mg PO HS Qty: 270 RF: 3 sildenafil (antihypertensive) 20 mg tablet 20 mg PO TID Qty: 20 RF: 3 Stand-Alone Forms: [facility] Discharge Orders: Discharge Order (Routine); Ordered 01/06/19 Ordered By: Moshe Wilcox Admission Data Admit Date/Time: 01/04/19 20:58 Attending Provider: Moshe Wilcox Admit Provider: Ruddy Morley Primary Care Provider: Ambrocio Gupta Other Providers: Ruddy Morley ; Justus Roth ; Ady Pressley Service: Medical Other Interventions: Discharge Summary Assessment (RN) Last Done: 01/06/19 09:05 DC Date/Time DO NOT enter until pt leaves facility: 01/06/19 10:25
== END 2019-01-06 10:25 | disposition home or self-care (01) ==
LOC: ED 17:48 → 4E 17:48 → SUATTDRO 20:58 → 4E 21:21
DX: L03.221 Cellulitis of neck; L02.11 Cutaneous abscess of neck; E78.5 Hyperlipidemia, unspecified; M19.90 Unspecified osteoarthritis, unspecified site; G47.33 Obstructive sleep apnea (adult) (pediatric)

== ENCOUNTER 2023-07-26 06:47 | Observation (INO) ==
--- NOTE | 2023-07-07 15:57 | PAT Medication Instructions ---
Medication Instructions Date of Service July 07, 2023 Home Medications Medication Instructions Recorded CPAP Machine #1 ea 02/19/21 sildenafil 50 mg tablet 50 mg PO DAILY PRN sexual activity 03/25/22 #10 tabs naproxen 500 mg tablet 500 mg PO BID HO prophylaxis for 3 12/27/22 weeks #60 tabs ibuprofen 600 mg tablet 600 mg PO TID PRN pain #90 tabs 07/01/23 sildenafil 50 mg tablet 50 mg PO DAILY PRN sexual activity naproxen 500 mg tablet 500 mg PO BID HO prophylaxis for 3 weeks folic acid 1 mg tablet 1 mg PO QAM ibuprofen 600 mg tablet 600 mg PO TID PRN pain Fish Oil 1 cap PO QAM Vitamin B-12 1 tab PO QAM Vitamin C 1 tab PO QAM Vitamin D3 1 cap PO QAM iron 1 cap PO QAM methotrexate sodium 2.5 mg tablet 2.5 mg PO UD ASK your surgeon for instructions naproxen 500 mg tablet 500 mg PO BID HO prophylaxis for 3 weeks ibuprofen 600 mg tablet 600 mg PO TID PRN pain ASK your prescriber and surgeon methotrexate sodium 2.5 mg tablet 2.5 mg PO UD STOP taking 2 weeks before surgery Fish Oil 1 cap PO QAM STOP taking 24 hours before surgery sildenafil 50 mg tablet 50 mg PO DAILY PRN sexual activity DO NOT take the morning of surgery folic acid 1 mg tablet 1 mg PO QAM Vitamin B-12 1 tab PO QAM Vitamin C 1 tab PO QAM Vitamin D3 1 cap PO QAM iron 1 cap PO QAM OTHERWISE NOTHING TO EAT OR DRINK AFTER MIDNIGHT Other Notes If you have any questions please call us at [phone] or [phone] or [phone] or [phone]
--- NOTE | 2023-07-12 09:21 | Anesthesiology Consultation ---
Date of Service July 12, 2023 Assessment & Plan (1) Encounter for pre-operative examination: - Outpatient joint assessment: Patient is currently scheduled for inpatient pathway. If re-evaluated and patient/surgeon requests outpatient pathway, patient is acceptable candidate for outpatient joint program from anesthesia standpoint pending surgeon's office assessment of pt motivation/support/completion of same day joint program preop requirements. Chart Review Chart Review: Acceptable Risk for Surgery and Patient seen in Pre Admission Testing Teaching & Discussion Pre-Anesthesia Teaching/Discussion Notes: Instructed NPO after midnight before surgery, except medications with 15 cc of water. Medication instructions provided according to the PAT guidelines. History Surgery Operation Date: 07/26/23 12:30 Proposed Procedures p Right Total Knee Arthroplasty - Ankur Ignacio MD Height/Weight Height: 6 ft 4 in Weight: 104.6 kg Allergies Allergy/AdvReac Type Severity Reaction Status Date / Time No Known Allergies Allergy Verified 07/07/23 11:35 Medications Home Medications Medication Instructions Recorded Confirmed Last Taken CPAP Machine #1 ea 02/19/21 04/19/23 Unknown sildenafil 50 mg tablet 50 mg PO DAILY PRN sexual activity 03/25/22 07/07/23 Unknown #10 tabs naproxen 500 mg tablet 500 mg PO BID HO prophylaxis for 3 12/27/22 07/07/23 Unknown weeks #60 tabs folic acid 1 mg tablet 1 mg PO QAM 04/04/23 07/07/23 Unknown ibuprofen 600 mg tablet 600 mg PO TID PRN pain #90 tabs 07/01/23 07/07/23 Unknown Fish Oil 1 cap PO QAM 07/07/23 07/07/23 Unknown Vitamin B-12 1 tab PO QAM 07/07/23 07/07/23 Unknown Vitamin C 1 tab PO QAM 07/07/23 07/07/23 Unknown Vitamin D3 1 cap PO QAM 07/07/23 07/07/23 Unknown iron 1 cap PO QAM 07/07/23 07/07/23 Unknown methotrexate sodium 2.5 mg tablet 2.5 mg PO UD 07/07/23 07/07/23 Unknown Additional Notes: Patient was instructed and it was corrected on medication instruction sheet provided to patient that methotrexate is to be stopped 7 days before surgery if approved by prescribing provider. Patient verbalized understanding, denied questions or concerns. 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 Exercise / Class Metabolic Activity II 4-5 Yardwork/Stairs/Walk up hill (denies chest discomfort or shortness of breath with 1 FOS) Past Family History Family History Mother Eczema Lung cancer COPD (chronic obstructive pulmonary disease) Father Colon cancer Lung cancer Stroke Uncle Heart disease Myocardial infarction Sister Breast cancer Aunt Heart disease Other Coronary heart disease No family history of adverse response to anesthesia Prostate cancer Past Surgical History Surgical History History of removal of cyst (03/31/21) Excision of 2 cm epidermoid cyst from the back. Dr. Wynn 03-31-2021 Hx of excision of epidermal inclusion cyst (01/13/21) Excision of epidermoid cyst from the left posterior shoulder area. Dr. Wynn History of incision and drainage neck abscess History of colonoscopy H/O eye surgery (~2014) laser surgery to repair a broken eye vessel. [facility] History of tonsillectomy Hx of excision of epidermal inclusion cyst History of excision of pilonidal cyst Past Anesthesia History No Hx of Anesthesia Complications and No Family Hx of Anesthesia Complications History of PONV No Hx of PONV and No Hx of Motion Sickness Social History Smoking Status: Never smoker Do You Dip or Chew Tobacco: No Hx Alcohol Use: Yes Alcohol type: beer and wine alcohol intake frequency: a few times a month Hx Substance Use: No substance use type: does not use Review of Systems Patient denies chest pain, shortness of breath, dyspnea on exertion, reflux, fever, chills, cough, wheezing, or palpitations. Physical Exam Vital Signs Vitals BP 110/70 P 80 TEMP 98.8 SP02 95% on RA RESP 18 Physical Patient resting comfortably in chair in no acute distress, alert and oriented, responding appropriately throughout visit Full cervical extension range of motion without pain TMD 3.5 finger breadths Mallampati Score 2 Dentition: several caps/crowns, denies chipped or loose teeth, implants or bridges Lungs: normal respiratory effort. Good air movement, clear throughout to auscultation, no adventitious breath sounds Cardiac: regular rate and rhythm, no murmurs noted Carotid arteries: negative bruit bilat Lab Results Anesthesia Preop Results Results Anesthesia Widget: WBC 6.35 K/ul (4.8-10.8) 06/27/23 Hgb 12.9 g/dl (14.0-18.0) L 06/27/23 Hct 39.2 % (42.0-52.0) L 06/27/23 Plt 351 K/uL (130-400) 06/27/23 Na 138 mmol/L (136-145) 06/27/23 K 4.2 mmol/L (3.5-5.1) 06/27/23 Cl 105 mmol/L (98-107) 06/27/23 CO2 27 mmol/L (21-32) 06/27/23 BUN 16 mg/dl (6-23) 06/27/23 Creat 0.94 mg/dl (0.6-1.4) 06/27/23 Glucose Level 110 mg/dl (70-99(Fasting)) H 06/27/23 PT 9.9 Seconds (9.0-12.0) 07/12/23 PTT 24 Seconds (21-31) 07/12/23 INR 0.9 (0.9-1.1) 07/12/23 Blood Type A Negative 07/12/23 Antibody Screen NEGATIVE 07/12/23 Testing Electrocardiogram Date: 07/12/23 NSR, rate 75 bpm Chest X-Ray Date: 07/12/23 Lung volumes are normal. There is no consolidation to suggest pneumonia. Left lower lobe reticulonodular interstitial thickening is present. There is no pneumothorax or pleural effusion. Cardiac size is normal. Mediastinal contours are normal. There is no evidence for pulmonary edema. IMPRESSION: 1. No acute cardiopulmonary findings. 2. Left lower lobe reticulonodular interstitial thickening which is likely chronic. Other Testing Carotid doppler 09/07/22 1. There is no sonographic evidence of hemodynamically significant stenosis in the right or left carotid arterial system. 2. Antegrade flow is shown in the vertebral arteries.
[~2023-07-26 06:47] MED LIST changes: +ACETAMINOPHEN 500 MG TAB PO SCH; -ATROPINE SULFATE 0.1 MG/ML 5ML SYR IV PRN; -BUPIVACAINE 0.5 % 5 MG/1 ML MPF 30ML VIAL ONE; -CALC600T9 PO; -CEFAZOLIN 2000MG IV PUSH 15 ML IV SCH; -CEPH500C2 PO; +CeleBREX 200 MG CAP PO SCH; -EpHEDrine SULFATE INJ 50 MG/ML AMP IV PRN; +FAMOTIDINE 20 MG TAB PO SCH; -FENTANYL CITRATE INJ 50 MCG/1 ML 2 ML VIAL ONE; -HYDR-5688 PO; -HYDROCODONE/ACETAMIN 5/325MG TAB PO PRN; -IBUPROFEN 600 MG TAB PO PRN; -LACTATED RINGER'S 1000ML 1,000 ML IV SCH; -LIDOCAINE HCL 1% 20 ML VIAL ONE; -LIDOCAINE HCL 2% 2 ML VIAL (20MG/ML) ONE; +LR 500ML BOLUS, THEN 15ML/HR IV SCH; +LR 60ML/HR IV SCH; +MEPIVACAINE HCL 1.5% 30 ML VIAL ONE; +METOCLOPRAMIDE HCL 10 MG TABLET PO SCH; -MIDAZOLAM HCL 1 MG/ML 2ML VIAL ONE; -MULT-506 PO; -PRAM0.1212 PO; -PROPOFOL IV EMULSION 10 MG/ML 20 ML VIAL IV ONE; +ROPIVACAINE 0.5% 5 MG/ML 30 ML VIAL ONE; +ROPIVACAINE 0.5% HCL/PF 246 MG, Ketorolac (*for OR use only*) 30 MG, EPINEPHrine 30MG/3... INFIL SCH; -SODIUM CHLORIDE 0.9% 1000ML 1,000 ML IV SCH; +TRANEXAMIC ACID 1,000 MG **IV Intra-op IV SCH; +ceFAZolin 2000MG 2,000 MG/15 ML SYR IV SCH; +dexAMETHasone**PF** 10 MG/ML VIAL IV SCH
--- NOTE | 2023-07-26 07:02 | History & Physical Bridge Note ---
Date of Service July 26, 2023 History & Physical Bridge Note I have examined the patient, reviewed the History & Physical and in the interval since the performance of the History & Physical I have noted the following changes of clinical significance: no changes noted
[2023-07-26] MEDS ORDERED: ONDANSETRON INJ 2 MG/ML 2 ML VIAL IV PRN ×2 (08:37→17:08)
[2023-07-26] MEDS ORDERED: ePHEDrine sulfate 50 MG/ML AMP IV PRN (08:37)
[2023-07-26] MEDS ORDERED: ATROPINE SULFATE 0.1 MG/ML 10ML SYR IV PRN (08:37)
[2023-07-26] MEDS ORDERED: fentaNYL citrate PF 100 MCG/2 ML VIAL IV PRN (08:37)
[2023-07-26] MEDS ORDERED: BUPIVACAINE 0.25% PF 30 ML VIAL ONE (08:53)
[2023-07-26] MEDS ORDERED: BUPIVACAINE LIPOSOME 1.3% 266 MG/20 ML VIAL ONE (08:53)
[2023-07-26] MEDS ORDERED: SODIUM CHLORIDE 0.9% PF 50 ML VIAL ONE (08:53)
[2023-07-26] MEDS ORDERED: EPINEPHrine INJ 1 MG/ML AMP ONE (08:53)
[2023-07-26] MEDS ORDERED: ceFAZolin 2000MG 2,000 MG/15 ML SYR IV ONE (11:01)
--- NOTE | 2023-07-26 11:06 | Operative Report ---
PG Post Operative Report Pre & Post Diagnosis Operation Date: 07/26/23 08:50 Pre-Op Diagnosis: Right Knee Degenerative Joint Disease Post-Op Diagnosis: Right Knee Degenerative Joint Disease I identified the patient and participated in the time-out.: Yes Procedure Operation Date: 07/26/23 08:50 Actual Procedures p Right Total Knee Arthroplasty - Ankur Ignacio MD Surgeon Ankur Ignacio MD Internet Marketing Specialist Tal Rae PA-C Estimated Blood Loss 100 Findings Consistent with Post-Op Diagnosis Operative findings revealed advanced right knee tricompartment DJD. Extensive grade 4 [id number] disease medially. He did have intercondylar notch impingement on the lateral femoral condyle eroding out part of that as well as advanced patellofemoral disease. Moderate-sized joint effusion. He had a fixed varus deformity to his knee. Specimens Right knee sent for pathology. Drains None Anesthesia Type Spinal MAC Complications none Indications Patient is a 73-year-old gentleman said a long history of bilateral knee pain discomfort describes gotten worse over time. He developed some inflammatory process and been diagnosed with seronegative spondyloarthritis. He has been managed by the earring maker. He got some of the joints calm down but the right knees continue to bother him more so than the left. Failed conservative measures. X-rays reveal advanced right knee DJD. He elected proceed with surgical management. Description of Procedure Operative findings consisted of: 1. Biomet Vanguard size 75 right Po stabilized femoral component. 2. Biomet size 83 tibial tray. 3. 10 mm post stabilized polyethylene insert. 4. 34 x 8 and half all poly patella. The patient was taken the operating, identified, and placed on the operating table in the supine position. All contact areas were appropriately padded. IV antibiotic 5 by anesthesia team. A spinal anesthetic and adductor canal block had been provided in the holding area. A right thigh tourniquet was then placed. The right lower extremity was then prepped and draped in usual sterile fashion. The right leg was elevated exsanguinated with use of an Esmarch and the tourniquet was placed at 300 mmHg. An anterior approach to the right knee was then performed to longitudinal incision centered over the patella. Sharp dissection was carried through subcutaneous tissue down the extensor mechanism. A medial parapatellar arthrotomy incision was made. Some subperiosteal dissection was carried out medially. The fat pad was resected from Neath patella tendon. Lateral patellofemoral ligament was released. Patella subluxated laterally knee was flexed. The osteophytes taken off distal femur. The ACL and PCL were then released from the distal femur the tibia subluxated anteriorly. The external treatment line jig was then placed in the interface the tibia and adjusted 14 mm medially. Proximal tibial cut was made essentially flush with the most deficient aspect of the medial tibial plateau. The tibia was then sized to a size 83. I did downsize this a little bit in order to get appropriate rotation of the tibial tray. Attention drawn the femur. The distal femur down the sharp drop with intramedullary canal was suction. Right 6 3 valgus cutting guide was placed. Distal femoral cutting block was pinned in place. Distal femoral cut was made to take an additional 3 mm of bone off distal femur. The femur was then sized to a size 75. The AP cutting block was pinned parallel to the epicondylar axis which was 3 degrees of external rotation. Anterior cut, anterior chamfer, posterior cut, posterior chamfer cuts were made. The box cutting guide was placed in just slight lateral and the box cut was made. The knee was flexed. The remnants of the medial and lateral menisci were excised. The osteophytes taken off the posterior aspect the femur. A trial femoral component was placed. The tibial tray was pinned Nia external rotation and the drill and stem punch used. Defect in proximal tibia for the tibial tray. The knee was then trialed and 10 mm insert fit most appropriately. Attention drawn the patella. The patella was cleaned of all soft tissues. Patella thickness measured 25 mm in thickness was cut down to 15. It was sized to a size 34 patella. The lug holes were drilled for the 34 patella. The lateral osteophyte was removed. Patella button was placed. Knee was taken through range of motion and the patella tracked nicely with no thumbs test. Attention drawn to place the permanent components. All trial components were removed. Bone plug was placed into the distal femur limit blood loss. A double batch Palacos G cement was mixed. BiomNadanu size 75 right Po stabilized femoral component, a size 83 tibial tray, 10 mm post stabilized polyethylene insert, and a 34 x 8 and half all poly patella then cemented in place. The knee was brought out into full extension till cement hardened. Final cement check was then performed. Pericapsular tissues were injected with total 100 cc of combination of 20 cc of Exparel, 30 cc normal saline, 50 cc of quarter percent Marcaine with epinephrine. Patient did receive 1 g tranexamic acid. The tourniquet was let down for final tourniquet time of 62 minutes. Hemostasis assured use electrocautery. Extensor Meclomen closed with combination 1 PDS suture #1 Vicryl suture in [id number] fashion. Extensor Meclomen checked found to be intact and subcutaneous tissues then closed with 2 Dexon suture in buried interrupted fashion the skin was closed skin barrington. Leg was then cleaned and dried and a sterile dressing was Xeroform, 4 fours, sterile cast padding, Pratik bandage were applied. Patient then transferred to the recovery room in stable condition. The patient tolerated the procedure well and there were no complications. Tal Rae, my physician training program assistant, was present for the entire procedure. His assistance was essential and required for appropriate patient positioning, prepping and draping, surgical exposure, performing the technical details of the operation, placement the implants, closure of the wound, and placement of the sterile bandage. I attest to the content of the Intraoperative Record and any orders documented therein. Any exceptions are noted below.
--- NOTE | 2023-07-26 11:25 | XRay Report ---
XR knee RT 1 or 2V routine CLINICAL HISTORY: Surgical Post Op TECHNIQUE: 2 views of the right knee were obtained. Comparison: Comparison is made to right knee radiograph 08/01/2015 FINDINGS: Patient is status post total knee arthroplasty with expected postsurgical changes including soft tiss ue swelling and subcutaneous emphysema. No periarticular lucency or hardware fracture is seen. IMPRESSION: Expected postoperative appearance status post placement of total knee arthroplasty. ACT 112: Negative or not required by law. Electronically signed by: Joe Alonso M.D. 07/26/2023 11:24 AM
--- NOTE | 2023-07-26 11:59 | Anesthesiology Progress Note ---
Date of Service July 26, 2023 Anesthesia Post Procedure Vital Signs Vital Signs: Temp Pulse Pulse Resp BP Pulse Ox O2 Del Method 07/26/23 11:43 97.9 F 82 16 112/63 92 Room Air 07/26/23 11:35 98.8 F 83 14 118/69 94 Room Air 07/26/23 11:25 79 14 119/63 96 Room Air 07/26/23 11:15 83 15 134/60 95 Oxymask 07/26/23 11:07 96.8 F L 88 14 109/55 L 93 Oxymask 07/26/23 07:28 98.8 F 88 20 130/88 96 Room Air O2 Flow Rate 07/26/23 11:43 07/26/23 11:35 07/26/23 11:25 07/26/23 11:15 4 07/26/23 11:07 6 07/26/23 07:28 Transfer of Care Handoff Completed per policy Notes Mental Status: alert / awake / arousable and participated in evaluation Patient Amnestic to Procedure: Yes Nausea / Vomiting: adequately controlled Pain: adequately controlled Airway Patency, RR, SpO2: stable & adequate BP & HR: stable & adequate Hydration State: stable & adequate Neuraxial Anesthesia: was administered and sensory block is resolving Anesthetic Complications: no major complications apparent and Pt Satisfied with anesthetic care
[2023-07-26] MEDS: oxyCODONE/ACETAMINOPHEN 5mg/325mg TAB PO PRN ×2 (12:20→17:37)
[2023-07-26] MEDS ORDERED: HYDROmorphone INJ 0.5 MG/0.5 ML SYR IV PRN (17:08)
[2023-07-26] MEDS ORDERED: MAGNESIUM HYDROXIDE SUSP 30 ML UDC PO PRN (17:08)
[2023-07-26] MEDS ORDERED: NALOXONE HCL 0.4 MG/1 ML VIAL/CARP IV PRN (17:08)
[2023-07-26] MEDS ORDERED: SODIUM CHLORIDE 0.9% 1,000 ML IV SCH (17:08)
[2023-07-26] MEDS ORDERED: oxyCODONE HCL IR 5 MG TAB (IMMEDIATE RELEASE) PO PRN (17:08)
[2023-07-26] MEDS ORDERED: ALUMINUM/MAGNESIUM SUSP 30 ML UDC PO PRN (17:08)
[2023-07-26] MEDS ORDERED: bisacodyL 10 MG SUPP PR PRN (17:08)
[2023-07-26] MEDS ORDERED: METOCLOPRAMIDE HCL INJ 5 MG/ML 2 ML VIAL IV PRN (17:08)
[2023-07-26] MEDS ORDERED: NON-FORMULARY MEDICATION (Sildenafil 50 mg tablet) PO PRN (17:08)
[2023-07-26] MEDS: KETOROLAC TROMETHAMINE 15 MG/ML VIAL IV SCH ×2 (17:45→23:09)
[2023-07-26] MEDS: ACETAMINOPHEN 500 MG TAB PO SCH (20:15)
[2023-07-26] MEDS: DOCUSATE SODIUM 100 MG CAP PO SCH (20:15)
[2023-07-26] MEDS: ASPIRIN 81 MG ECTAB PO SCH (20:16)
[2023-07-26] MEDS: ceFAZolin 2000MG 2,000 MG/15 ML SYR IV SCH (20:22)
[2023-07-26] MEDS ORDERED: TRANEXAMIC ACID / 0.7% NACL 1,000 MG/100 ML BAG IV SCH (21:00)
[2023-07-26] MEDS ORDERED: SENNA 8.6 MG TAB PO SCH ×2 (21:00)
[2023-07-27] MEDS: ceFAZolin 2000MG 2,000 MG/15 ML SYR IV SCH (05:09)
[2023-07-27] MEDS: KETOROLAC TROMETHAMINE 15 MG/ML VIAL IV SCH (05:09)
[2023-07-27 06:41] LABS: Hematocrit (blood only) 32.3 % (42.0-52.0); Hemoglobin 10.9 g/dl (14.0-18.0); Mean Corpuscular Hemoglobin 29.9 pg (25.0-34.0); Mean Corpuscular Hgb Conc 33.7 g/dL (32.0-36.0); Mean Corpuscular Volume 88.5 fL (80.0-100.0); Mean Platelet Volume 9.1 fL (9.4-12.4); Platelet Count 241 K/uL (130-400); RDW Coefficient of Variation 17.1 % (11.5-14.5); RDW Standard Deviation 55.2 fL (36.4-46.3); Red Blood Count 3.65 M/uL (4.70-6.10); White Blood Count 14.58 K/ul (4.8-10.8)
[2023-07-27 07:16] LABS: BUN Creatinine Ratio 16.2 (10-20); Calcium 8.5 mg/dl (8.6-10.3); Creatinine Clr Calc Pharmacy 79.1 ml/min; Est GFR (African American) 81.8 ml/min; Est GFR (Non-African American) 70.6 ml/min; Potassium 4.2 mmol/L (3.5-5.1)
[2023-07-27] MEDS ORDERED: dexAMETHasone 10 MG in SYRINGE 0 ML IV SCH (08:00)
[2023-07-27] MEDS ORDERED: FOLIC ACID 1 MG TAB PO SCH (09:00)
[2023-07-27] MEDS ORDERED: ASCORBIC ACID 500 MG TAB PO SCH (09:00)
[2023-07-27] MEDS ORDERED: MULTIVITAMIN TAB PO SCH (09:00)
[2023-07-27] MEDS ORDERED: CHOLECALCIFEROL 1,000 UNITS 25 MCG TAB PO SCH (09:00)
[2023-07-27] MEDS ORDERED: CYANOCOBALAMIN (B-12) 500 MCG TABLET PO SCH (09:00)
[2023-07-27] MEDS ORDERED: OMEGA-3 (PURIFIED FISH OIL) 1 GM CAP PO SCH (09:00)
[2023-07-27] MEDS ORDERED: FERROUS SULFATE 325 MG TAB PO SCH (09:00)
[2023-07-27] MEDS ORDERED: TAMSULOSIN HCL 0.4 MG CAP PO SCH (09:00)
[2023-07-27] MEDS: ASPIRIN 81 MG ECTAB PO SCH (09:03)
[2023-07-27] MEDS: DOCUSATE SODIUM 100 MG CAP PO SCH (09:05)
[2023-07-27] MEDS: ACETAMINOPHEN 500 MG TAB PO SCH (09:05)
--- NOTE | 2023-07-27 09:10 | Orthopedic Progress Note ---
Date of Service July 27, 2023 Assessment & Plan (1) Status post right knee replacement: Overall, he is doing quite well today with good pain control of the right knee. He will work with physical therapy later on today to work on ambulation and range of motion exercises. As for the knee immobilizer, if he is feeling that his knee is not giving out on him today, he does not need to wear the knee immobilizer. This will be discussed further later by physical therapy. He can be discharged home later today pending physical therapy evaluation. He will follow-up with Dr. Ignacio in 2 weeks for postoperative care. Patient was seen and examined by myself, Ankur Ignacio. I agree with above. Patient is doing well. As long as he does well in therapy we will discharge him to home with home health. He will follow back with me in 2 weeks. Subjective . Delroy was seen and evaluated at bedside today resting comfortably in no apparent distress. He was originally supposed to be an outpatient joint but had some weakness to the right lower extremity where his knee Gave out on Him. It Was Decided That He Was Probably Best to Stay the Night to Allow for More Physical Therapy Today. Today, He States That He Is Doing Quite Well Today and the Pain Is Well-Controlled. He Denies Any Other Issues Today. He Is Currently in a Knee Immobilizer. Review of Systems All systems reviewed & are unremarkable except as noted in HPI & below. Physical Exam . On physical examination of the right knee, dressings are clean, dry, and in place. He does currently have a knee immobilizer applied. His leg is out in full extension. He has active plantarflexion dorsiflexion to the right ankle. +2 DP and PT pulses. Less than 2-second capillary refill. Normal sensation. Neurovascular intact. Results & Data Results & Data Laboratory Results . Diagnostic Findings . Postoperative x-rays of the right knee show prosthesis to be in anatomical alignment with no signs of fracture complication or loosening. PG Care Time/CCT Total # of Minutes Spent Total Time Spent with Patient: Total time spent is greater than 50% in coordination of care (as documented) at patient's floor/unit and/or counseling patient: Coding Level of Care Code 29528 Post Operative Follow-Up Diagnoses Status post right knee replacement Z96.651
--- NOTE | 2023-07-27 09:12 | Discharge Summary ---
Date of Service July 27, 2023 Principal Diagnosis Same as "Discharge Diagnosis" noted below under Discharge Instructions. Discharge Exam . On physical examination of the right knee, dressings are clean, dry, and in place. He does currently have a knee immobilizer applied. His leg is out in full extension. He has active plantarflexion dorsiflexion to the right ankle. +2 DP and PT pulses. Less than 2-second capillary refill. Normal sensation. Neurovascular intact. Discharge Data Procedures Performed Operation Date: 07/26/23 08:50 Actual Procedures p Right Total Knee Arthroplasty - Ankur Ignacio MD Ordered Studies 07/26/23 05:00 US - OR guided needle placemen Routine Hospital Course (1) Status post right knee replacement: On July 26, 2023 Delroy arrived at [facility] and underwent a rig ht total knee arthroplasty with Dr. Ignacio without any complications. He had a spinal anesthetic. Postoperatively, he was started on aspirin for DVT prophylaxis and transferred to the PACU for postoperative care. He originally was supposed to be an outpatient joint but whenever he was trying to work with therapy postoperatively, he was noting a lot of instability to the right knee. It was at that moment that it was felt that he would be better off stay in the night to work more with therapy. A knee immobilizer was applied for transitional movements. He was then transferred to the general orthopedic floor in stable condition. On postoperative day #1, his pain was well-controlled his vital signs were stable. He worked well with physical therapy doing ambulation and range of motion exercises. He was then discharged home in stable condition. He will follow-up with Dr. Ignacio in 2 weeks for postoperative care. PG Care Time/CCT Total # of Minutes Spent Total Time Spent with Patient: Total time spent is greater than 50% in coordination of care (as documented) at patient's floor/unit and/or counseling patient: Discharge Plan Discharge Items Patient Disposition: Home - Home Health Services Reason For Visit: RIGHT KNEE REPLACEMENT Discharge Diagnosis: Right Knee Replacement Activity: Per Instructions section Non-emergency contact: Surgeon Call non-emergency contact if: you have any medication questions Follow-up/Referrals: [facility] [Outside] (as per surgeon's office ) Ambrocio Gupta MD [Primary Care Provider] - Ankur Ignacio MD [Physician] - Diet: Regular Addtl Attending Provider Instructions: ACTIVITY RECOMMENDATIONS: Physical Therapy: * You will go to physical therapy three times each week for four to six weeks after your surgery in order to regain your knee range of motion and to retrain your knee to work properly. * It is just as important to make sure you are getting your knee perfectly straight as it is to regain your knee bend. * Taking a pain pill an hour before therapy can help you have a more productive and comfortable therapy session. Home Exercise: * You were shown a series of exercises (heel props, heel slides, etc.) in the hospital. Do these exercises three to four times each day including the exercises you were shown in physical therapy. Walking: * Get up and walk several times each day. For the first four weeks, try not to stand or walk for more than one hour at a time. If you do stand or walk for more than one hour, you will not hurt anything, but your knee and leg will likely swell. * As you feel comfortable, you may change from the walker or crutches to a cane and then to independent walking. MEDICATIONS: New Medicine: * You will likely be taking one or more of these medications: 1. Oxycodone - A quick and shorter-acting pain medication. Take one to two tablets every six hours to lessen your pain. 2. Aspirin - Thins your blood to lessen the chance of forming a blood clot. * The most common side effects of pain medicine and iron are nausea and constipation. If nausea or constipation is too much of a problem or if you have any questions about your new medicines or doses, call [facility] at [phone]. We will try to help you manage these issues. "VERY IMPORTANT TO READ AND REVIEW" Pain: * The immediate post-operative period after knee replacement surgery is often quite painful. * You are given a prescription for pain medicine. You should take it, as directed, when you need it, especially before physical therapy and before going to bed. Pain that interferes with sleep is very common and can last several months. * You will likely need pain medicine for the first four to six weeks. It will not stop all of the pain. The pain will lessen and as you feel better, you may change to milder pain medicine such as Tylenol. * The most common side effects of pain medicine are nausea and constipation, so don't take more than you need. SPECIAL CARE INSTRUCTIONS: TEDs/Elastic Stockings: * The white elastic stockings help limit swelling and prevent blood clots from forming in your legs. The more you wear them, the more they work. * Wear them for six weeks after knee replacement surgery and four weeks after partial knee replacement. Incision Site Care: * Remove dressing postoperative day 2 and then shower. Keep direct shower pressure off the incision site. * After showering, cover barrington with dry gauze and change daily or more frequently if the dressing is getting saturated with drainage. * Use the ARTURO stockings to hold dressing in place. DO NOT apply tape on the skin. * May completely stop using bandage if wound is dry and no drainage * Star are removed between 2 and 3 weeks post-op. If your follow-up appointment is made before 2 weeks, please have your appointment re- scheduled. It is too early to remove the barrington. Prevention of Infection: * Take antibiotics one hour before any dental cleaning, dental work, urological procedure, gastrointestinal procedure or any invasive surgery in order to prevent your new joint from getting infected. * You may get the antibiotics from the doctor performing the procedure or you may call our office at [phone] before and we will call in a prescription to the pharmacy of your choice. Things to Watch For: * Drainage from the incision site that occurs more than one week after your surgery. * Severely increased knee/leg pain or swelling. * Increased redness at the incision site. * Fever above 102 degrees Fahrenheit. * Unusual chest pain or shortness of breath. * Unusual pain or burning with urination. Call [facility] at [phone] with any of the above problems or if you have any questions about your medicines or recovery. FOLLOW UP VISIT: Make an appointment to see your doctor for approximately two weeks after surgery for a progress check and staple removal by calling the office at [phone]. Pending Studies at Discharge: No Stand-Alone Forms: Anesthesia/Sedation, Adult, [facility] Medications and DC Order Prescriptions: Continued (DME) CPAP Machine Misc See Rx Instructions .MEDSUPPLY Qty: 1 0RF Rx Instructions: Auto CPAP 5-15 cm water pressure, C flex setting #2 with heated humidification, tubing, and supplies. KERI: 99+ years. sildenafil 50 mg tablet 50 mg PO DAILY PRN (Reason: sexual activity) Qty: 10 3RF folic acid 1 mg tablet 1 mg PO QAM oxycodone 5 mg tablet 5 - 10 mg PO Q6 PRN (Reason: pain) Qty: 40 0RF Rx Instructions: Take as needed for pain ondansetron 4 mg tablet,disintegrating 4 mg PO Q8 PRN (Reason: nausea) Qty: 20 1RF Rx Instructions: Take as needed for nausea ketorolac 10 mg tablet 10 mg PO Q6 5 Days Qty: 20 0RF Rx Instructions: Take 4 times per day with food for 5 days to lessen pain and swelling. sennosides [Senokot] 8.6 mg tablet 8.6 mg PO BID 14 Days Qty: 28 0RF Rx Instructions: Take two times a day to prevent/treat constipation acetaminophen [Tylenol Extra Strength] 500 mg tablet 1,000 mg PO TID 30 Days Qty: 180 0RF Rx Instructions: Take 3 times per day to lessen pain aspirin [Glory Low Dose Aspirin] 81 mg tablet,delayed release (DR/EC) 81 mg PO BID 45 Days Qty: 90 0RF Rx Instructions: Take to prevent blood clots. tamsulosin [Flomax] 0.4 mg capsule 0.4 mg PO DAILY Qty: 7 0RF Rx Instructions: Begin night BEFORE surgery to prevent urinary retention cefadroxil 500 mg capsule 500 mg PO BID 7 Days Qty: 14 0RF Rx Instructions: Take 1 cap twice a day to prevent infection methotrexate sodium 2.5 mg Tablet 2.5 mg PO UD Patient Comments: 8 tabs on Fridays Fish Oil 1 cap PO QAM Vitamin B-12 1 tab PO QAM Vitamin C 1 tab PO QAM Vitamin D3 1 cap PO QAM iron 1 cap PO QAM Discontinued ibuprofen 600 mg tablet 600 mg PO TID PRN (Reason: pain) Qty: 90 0RF naproxen 500 mg tablet 500 mg PO BID Qty: 60 2RF Rx Instructions: Take with food Krames/Other Patient Handouts: DVT Post Op Prevention Admission Data Admit Date/Time: 07/26/23 15:18 Attending Provider: Ankur Ignacio Admit Provider: Ankur Ignacio Primary Care Provider: Ambrocio Gupta Other Providers: [facility]
== END 2023-07-27 12:10 | disposition home health service (06) ==
LOC: 3E 06:47 → ASU 06:47

== ENCOUNTER 2024-07-31 08:52 | Observation (INO) ==
--- NOTE | 2024-06-22 10:48 | PAT Medication Instructions ---
Medication Instructions Date of Service June 22, 2024 Home Medications Medication Instructions Recorded CPAP Machine #1 ea 02/19/21 acetaminophen 500 mg tablet 1,000 mg (2 x 500 mg) PO TID pain 07/24/23 (Tylenol Extra Strength) 30 days #180 tabs sildenafil 50 mg tablet 50 mg PO DAILY PRN sexual activity 02/10/24 #10 tabs ibuprofen 600 mg tablet 600 mg PO Q6H PRN Pain #90 tabs 04/11/24 Medication List: folic acid 1 mg tablet 1 mg PO QAM methotrexate sodium 2.5 mg tablet 2.5 mg PO UD acetaminophen 500 mg tablet (Tylenol Extra Strength) 1,000 mg (2 x 500 mg) PO TID pain sildenafil 50 mg tablet 50 mg PO DAILY PRN sexual activity ibuprofen 600 mg tablet 600 mg PO Q6H PRN Pain amlodipine 5 mg tablet 5 mg PO QAM ascorbic acid (vitamin C) 1,000 mg tablet (Vitamin C) 1 g PO QAM cholecalciferol (vitamin D3) 25 mcg (1,000 unit) chewable tablet (Vitamin D3) 25 mcg PO QAM cyanocobalamin (vitamin B-12) 1,000 mcg tablet (Vitamin B-12) 1,000 mcg PO QAM ferrous sulfate 325 mg (65 mg iron) tablet (iron) 325 mg PO QAM omega-3 fatty acids 1,000 mg PO QAM rosuvastatin 5 mg tablet 5 mg PO QAM MEDICATION INSTRUCTIONS: ASK your surgeon for instructions ibuprofen 600 mg tablet 600 mg PO Q6H PRN Pain STOP taking 24 hours before surgery omega-3 fatty acids 1,000 mg PO QAM DO NOT take the morning of surgery ascorbic acid (vitamin C) 1,000 mg tablet (Vitamin C) 1 g PO QAM cholecalciferol (vitamin D3) 25 mcg (1,000 unit) chewable tablet (Vitamin D3) 25 mcg PO QAM cyanocobalamin (vitamin B-12) 1,000 mcg tablet (Vitamin B-12) 1,000 mcg PO QAM ferrous sulfate 325 mg (65 mg iron) tablet (iron) 325 mg PO QAM folic acid 1 mg tablet 1 mg PO QAM sildenafil 50 mg tablet 50 mg PO DAILY PRN sexual activity Take morning of surgery With a small sip of water, OTHERWISE NOTHING TO EAT OR DRINK AFTER MIDNIGHT: acetaminophen 500 mg tablet (Tylenol Extra Strength) 1,000 mg (2 x 500 mg) PO TID pain rosuvastatin 5 mg tablet 5 mg PO QAM amlodipine 5 mg tablet 5 mg PO QAM Take evening before surgery acetaminophen 500 mg tablet (Tylenol Extra Strength) 1,000 mg (2 x 500 mg) PO TID pain Other Notes STOP taking 7 days before surgery: methotrexate sodium 2.5 mg tablet 2.5 mg PO UD If you have any questions please call us at [phone] or [phone] or [phone] or [phone]
--- NOTE | 2024-07-02 08:47 | Anesthesiology Consultation ---
Date of Service July 02, 2024 Assessment & Plan (1) Encounter for pre-operative examination: Plan - ophthalmology office visit 05/02/24 [facility]: "...non-arteritic anterior ischemic optic neuropathy...change for improvement with time in approx 40% of pts over 3- 6 months; optic disc edema resolves within 8 weeks...retinal tear OS s/p laser 10/01/15...h/o vitreous hemorrhage occurred 02/02/14 while playing softball...retinal tear OD s/p laser 12/20/13..." Patient states vision has improved, states he has a mild residual area of blurriness. - Outpatient joint assessment: Patient is currently scheduled for inpatient pathway. If re-evaluated and patient/surgeon requests outpatient pathway, patient is not ideal candidate for outpatient joint program from anesthesia standpoint. Chart Review Chart Review: Acceptable Risk for Surgery and Patient seen in Pre Admission Testing Teaching & Discussion Pre-Anesthesia Teaching/Discussion Notes: Instructed NPO after midnight before surgery, except medications with 15 cc of water. Medication instructions provided according to the PAT guidelines. History Surgery Operation Date: 07/31/24 08:50 Proposed Procedures p Left Total Knee Arthroplasty - Ankur Ignacio MD Height/Weight Height: 6 ft 4 in Weight: 103.4 kg Allergies Allergy/AdvReac Type Severity Reaction Status Date / Time No Known Allergies Allergy Verified 06/21/24 09:33 Medications Home Medications Medication Instructions Recorded Confirmed Last Taken CPAP Machine #1 ea 02/19/21 06/07/24 Unknown folic acid 1 mg tablet 1 mg PO QAM 04/04/23 06/21/24 07/23/23 methotrexate sodium 2.5 mg tablet 2.5 mg PO UD 07/07/23 06/21/24 07/15/23 acetaminophen 500 mg tablet 1,000 mg (2 x 500 mg) PO TID pain 07/24/23 06/21/24 Unknown (Tylenol Extra Strength) 30 days #180 tabs sildenafil 50 mg tablet 50 mg PO DAILY PRN sexual activity 02/10/24 06/21/24 Unknown #10 tabs ibuprofen 600 mg tablet 600 mg PO Q6H PRN Pain #90 tabs 04/11/24 06/21/24 Unknown amlodipine 5 mg tablet 5 mg PO QAM 06/21/24 06/21/24 Unknown ascorbic acid (vitamin C) 1,000 mg 1 g PO QAM 06/21/24 06/21/24 Unknown tablet (Vitamin C) cholecalciferol (vitamin D3) 25 25 mcg PO QAM 06/21/24 06/21/24 Unknown mcg (1,000 unit) chewable tablet (Vitamin D3) cyanocobalamin (vitamin B-12) 1,000 mcg PO QAM 06/21/24 06/21/24 Unknown 1,000 mcg tablet (Vitamin B-12) ferrous sulfate 325 mg (65 mg 325 mg PO QAM 06/21/24 06/21/24 Unknown iron) tablet (iron) omega-3 fatty acids 1,000 mg PO QAM 06/21/24 06/21/24 Unknown rosuvastatin 5 mg tablet 5 mg PO QAM 06/21/24 06/21/24 Unknown aspirin 81 mg tablet 81 mg PO DAILY 07/02/24 07/02/24 Unknown Additional Notes: Patient was instructed and it was written on provided medication instructions to ask surgeon for instructions on aspirin 81 mg. It was also corrected that omega 3 will need stopped 2 weeks before surgery. He verbalized understanding and agreement, denied questions, concerns or additional medications/supplements. 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 Exercise / Class Metabolic Activity II 4-5 Yardwork/Stairs/Walk up hill (denies chest discomfort or shortness of breath with one flight of stairs) Past Family History Family History Mother Eczema Lung cancer COPD (chronic obstructive pulmonary disease) Father Colon cancer Lung cancer Stroke Uncle Heart disease Myocardial infarction Sister Breast cancer Aunt Heart disease Other Coronary heart disease No family history of adverse response to anesthesia Prostate cancer Past Surgical History Surgical History H/O eye surgery (~2014) laser surgery to repair a broken eye vessel. [facility] [place] History of colonoscopy History of excision of pilonidal cyst History of incision and drainage neck abscess History of removal of cyst (03/31/21) Excision of 2 cm epidermoid cyst from the back. Dr. Wynn 03-31-2021 History of tonsillectomy History of total right knee replacement Hx of excision of epidermal inclusion cyst (01/13/21) Excision of epidermoid cyst from the left posterior shoulder area. Dr. Wynn Past Anesthesia History No Hx of Anesthesia Complications and No Family Hx of Anesthesia Complications History of PONV No Hx of PONV and No Hx of Motion Sickness Social History Smoking Status: Never smoker Do You Dip or Chew Tobacco: No Hx Alcohol Use: No Alcohol type: beer and wine alcohol intake frequency: a few times a month Hx Substance Use: No substance use type: does not use Review of Systems Patient denies chest pain, shortness of breath, dyspnea on exertion, reflux, fever, chills, cough, wheezing, or palpitations. Physical Exam Vital Signs Vitals BP 124/75 P 78 TEMP 98.8 SP02 97% on RA RESP 18 Physical Patient resting comfortably in chair in no acute distress, alert and oriented, responding appropriately throughout visit Full cervical extension range of motion without pain TMD 3.5 finger breadths Mallampati Score 2 Dentition: one implant base, front chipped tooth and several caps/crowns, denies loose teeth, or bridges Lungs: normal respiratory effort. Good air movement, clear throughout to auscultation, no adventitious breath sounds Cardiac: regular rate and rhythm, no murmurs noted Carotid arteries: negative bruit bilat Lab Results Anesthesia Preop Results Results Anesthesia Widget: WBC 4.99 K/ul (4.8-10.8) 07/02/24 Hgb 13.0 g/dl (14.0-18.0) L 07/02/24 Hct 38.3 % (42.0-52.0) L 07/02/24 Plt 226 K/uL (130-400) 07/02/24 Na 141 mmol/L (136-145) 07/02/24 K 4.3 mmol/L (3.5-5.1) 07/02/24 Cl 105 mmol/L (98-107) 07/02/24 CO2 31 mmol/L (21-32) 07/02/24 BUN 15 mg/dl (6-23) 07/02/24 Creat 1.05 mg/dl (0.6-1.4) 07/02/24 Glucose Level 108 mg/dl (70-99(Fasting)) H 07/02/24 PT 10.0 Seconds (9.0-12.0) 07/02/24 PTT 25 Seconds (21-31) 07/02/24 INR 0.9 (0.9-1.1) 07/02/24 Blood Type A Negative 07/02/24 Antibody Screen NEGATIVE 07/02/24 Testing Electrocardiogram Date: 07/02/24 NSR, rate 69 bpm Chest X-Ray Date: 07/02/24 No acute cardiopulmonary findings. No change in appearance of the chest. Other Testing MRI orbits 04/13/24 No acute intracranial abnormality. No discrete orbital mass, optic nerve signal abnormality or abnormal orbital enhancement. Carotid doppler 09/07/22 1. There is no sonographic evidence of hemodynamically significant stenosis in the right or left carotid arterial system. 2. Antegrade flow is shown in the vertebral arteries.
--- NOTE | 2024-07-30 07:40 | History & Physical Report ---
Date of Service July 30, 2024 Assessment & Plan (1) Left knee DJD: 74-year-old gentleman now a year out from a right knee replacement with advanced left knee DJD. He is got some degree of inflammatory arthritis. He is failed conservative measures and would like to proceed with left knee replacement. Plan: We are planning on taking him to the operating do left total knee replacement for the risks Mente this procedure explained and he understands. Informed consent was obtained. He is planning to be discharged to home using home health. Will use aspirin for DVT prophylaxis. (2) Status post right knee replacement: (3) Seronegative rheumatoid arthritis: (4) Hyperlipidemia: (5) Hypertension: History of Present Illness Chief Complaint: . Persistent, progressive left knee pain and discomfort. Primary Care Provider: Ambrocio Gupta MD . The patient is a 74-year-old gentleman who presents now for surgical treatment of his left knee. He is got a long history of knee problems and had his right knee replaced about a year ago. They continue to be bothered by left knee pain discomfort. Is been through extensive conservative treatment over the years which would become less successful. He now like to proceed with surgical treatment. He is happy with his right knee replacement. Of note, he does have a history of inflammatory arthritis and on medical management for this. Allergies Allergy/AdvReac Type Severity Reaction Status Date / Time No Known Allergies Allergy Verified 06/21/24 09:33 Home Medications Medication Instructions Recorded Confirmed Type CPAP Machine #1 ea 02/19/21 06/07/24 Rx folic acid 1 mg tablet 1 mg PO QAM 04/04/23 06/21/24 History methotrexate sodium 2.5 mg tablet 2.5 mg PO UD 07/07/23 06/21/24 History acetaminophen 500 mg tablet 1,000 mg (2 x 500 mg) PO TID pain 07/24/23 06/21/24 Rx (Tylenol Extra Strength) 30 days #180 tabs sildenafil 50 mg tablet 50 mg PO DAILY PRN sexual activity 02/10/24 06/21/24 Rx #10 tabs ibuprofen 600 mg tablet 600 mg PO Q6H PRN Pain #90 tabs 04/11/24 06/21/24 Rx amlodipine 5 mg tablet 5 mg PO QAM 06/21/24 06/21/24 History ascorbic acid (vitamin C) 1,000 mg 1 g PO QAM 06/21/24 06/21/24 History tablet (Vitamin C) cholecalciferol (vitamin D3) 25 25 mcg PO QAM 06/21/24 06/21/24 History mcg (1,000 unit) chewable tablet (Vitamin D3) cyanocobalamin (vitamin B-12) 1,000 mcg PO QAM 06/21/24 06/21/24 History 1,000 mcg tablet (Vitamin B-12) ferrous sulfate 325 mg (65 mg 325 mg PO QAM 06/21/24 06/21/24 History iron) tablet (iron) omega-3 fatty acids 1,000 mg PO QAM 06/21/24 06/21/24 History rosuvastatin 5 mg tablet 5 mg PO QAM 06/21/24 06/21/24 History aspirin 81 mg tablet 81 mg PO DAILY 07/02/24 07/02/24 History acetaminophen 500 mg tablet 1,000 mg (2 x 500 mg) PO TID pain 07/29/24 Rx (Tylenol Extra Strength) 30 days #180 tabs aspirin 81 mg tablet,delayed 81 mg PO BID 45 days #90 tabs 07/29/24 Rx release (Glory Low Dose Aspirin) cefadroxil 500 mg capsule 500 mg PO BID 7 days #14 caps 07/29/24 Rx ketorolac 10 mg tablet 10 mg PO Q6 pain 5 days #20 tabs 07/29/24 Rx ondansetron 4 mg disintegrating 4 mg PO Q8 PRN nausea #20 tabs 07/29/24 Rx tablet oxycodone 5 mg tablet 5 - 10 mg (1 - 2 x 5 mg) PO Q6 PRN 07/29/24 Rx pain #40 tabs sennosides 8.6 mg tablet (Senokot) 8.6 mg PO BID prevent constipation 07/29/24 Rx 14 days #28 tabs tamsulosin 0.4 mg capsule (Flomax) 0.4 mg PO DAILY #7 caps 07/29/24 Rx Past Med/Surg History Problem List Primary hypertension Seronegative rheumatoid arthritis RS3PE syndrome Anemia, mild Periodic limb movement disorder Vitamin D deficiency Vitamin B12 deficiency (Chronic) Tinnitus (Chronic) Obstructive sleep apnea (Chronic) Hyperlipidemia (Chronic) Degenerative arthritis of knee, bilateral (Chronic) Medical History Cataracts, bilateral patient reports planned surgery after orthopedic surgery Ischemic optic neuropathy of right eye 03/2024, right eye blurry vision, 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 Seronegative rheumatoid arthritis Hyperlipidemia Hypertension controlled, stable per pt History of colon polyps Degenerative arthritis of knee, 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 Dr. Wynn 03-31-2021 Hx of excision of epidermal inclusion cyst (01/13/21) Excision of epidermoid cyst from the left posterior shoulder area. Dr. Wynn History of incision and drainage neck abscess History of colonoscopy H/O eye surgery (~2014) laser surgery to repair a broken eye vessel. [facility] [place] History of tonsillectomy History of excision of pilonidal cyst Family History Mother Eczema Lung cancer COPD (chronic obstructive pulmonary disease) Father Colon cancer Lung cancer Stroke Uncle Heart disease Myocardial infarction Sister Breast cancer Aunt Heart disease Other Coronary heart disease No family history of adverse response to anesthesia Prostate cancer Social History Smoking Status: Never smoker Second Hand Exposure: No; Do You Dip or Chew Tobacco: No; Hx Alcohol Use: No Hx Substance Use: No Preferred Language: Telugu Communication Ability: Effective Visual Impairment: No Limitations Hearing Ability: Normal [place] Required: No Beliefs That Will Affect Care: None marital status: Current Living Situation: Spouse current occupational status: retired How many Children do You have: 3 Feels Safe at Home: Yes Childhood Exposure to Second-Hand Smoke: Yes Diet: regular during the past year weight has: increased > 10 lbs Dental Care, Regularly: Yes Physical Activity Frequency: 5-6 Times per Week Seatbelt Use: always Sunscreen Use: Yes Assistive Devices: Glasses Review of Systems All systems reviewed & are unremarkable except as noted in HPI & below. Physical Exam . Physical examination reveals a pleasant middle-age male who looks in pretty good health. Examination of both [id number] patient walks independently. Examination of the left knee reveals a slight varus alignment to his knee. He is got bony hypertrophy medially. He is got about a 10 degree flexion contracture and bends to about 110. He is got moderate-sized knee effusion. No pain with hip motion. He is neurologically intact. Examination of the right knee reveals well-healed incision. Range of motion 0-1 20. No swelling. No pain with hip motion. Constitutional WD/WN, vitals as above Neck trachea midline, no thyromegaly Respiratory normal respiratory effort, lungs clear to auscultation Cardiovascular RRR, no murmur, no edema Gastrointestinal (Abdomen) normal bowel sounds, soft, nontender, no hepatosplenomegaly Results & Data Results & Data Laboratory Results . Diagnostic Findings . X-rays of the left knee reveal advanced left knee medial compartment arthritis. Got complete loss of his medial joint space. He has subchondral sclerosis. Discussed some cystic changes medially. The right knee replacement looks to be in good position without problems. PG Care Time/CCT Total # of Minutes Spent Total Time Spent with Patient: Total time spent is greater than 50% in coordination of care (as documented) at patient's floor/unit and/or counseling patient: Coding Level of Care Code None Diagnoses Left knee DJD M17.12 Status post right knee replacement Z96.651 Seronegative rheumatoid arthritis M06.00 Hyperlipidemia E78.5 Hypertension I10
[~2024-07-31 08:52] MED LIST changes: -ACETAMINOPHEN 500 MG TAB PO SCH; +BUPIVACAINE 0.25% PF 30 ML VIAL ONE; +BUPIVACAINE 0.5 % 5 MG/1 ML PF 10ML VIAL ONE; -CeleBREX 200 MG CAP PO SCH; +DEXAMETHASONE SOD INJ 4 MG/ML VIAL ONE; +EPINEPHrine INJ 1 MG/ML AMP ONE; -FAMOTIDINE 20 MG TAB PO SCH; -LR 500ML BOLUS, THEN 15ML/HR IV SCH; -LR 60ML/HR IV SCH; -MEPIVACAINE HCL 1.5% 30 ML VIAL ONE; -METOCLOPRAMIDE HCL 10 MG TABLET PO SCH; -ROPIVACAINE 0.5% 5 MG/ML 30 ML VIAL ONE; -ROPIVACAINE 0.5% HCL/PF 246 MG, Ketorolac (*for OR use only*) 30 MG, EPINEPHrine 30MG/3... INFIL SCH; -TRANEXAMIC ACID 1,000 MG **IV Intra-op IV SCH; -ceFAZolin 2000MG 2,000 MG/15 ML SYR IV SCH; -dexAMETHasone**PF** 10 MG/ML VIAL IV SCH
--- NOTE | 2024-07-31 09:09 | History & Physical Bridge Note ---
Date of Service July 31, 2024 History & Physical Bridge Note I have examined the patient, reviewed the History & Physical and in the interval since the performance of the History & Physical I have noted the following changes of clinical significance: no changes noted
[2024-07-31] MEDS ORDERED: ATROPINE SULFATE 0.1 MG/ML 10ML SYR IV PRN (09:29)
[2024-07-31] MEDS ORDERED: ePHEDrine sulfate 50 MG/ML AMP IV PRN (09:29)
[2024-07-31] MEDS ORDERED: ONDANSETRON INJ 2 MG/ML 2 ML VIAL IV PRN ×2 (09:29→15:28)
[2024-07-31] MEDS ORDERED: PROMETHAZINE HCL 6.25 MG in SODIUM CHLORIDE 0.9% 50 ML IV PRN (09:29)
[2024-07-31] MEDS ORDERED: fentaNYL citrate PF 100 MCG/2 ML VIAL IV PRN (09:29)
[2024-07-31] MEDS: ACETAMINOPHEN 500 MG TAB PO SCH ×2 (09:34→16:07)
[2024-07-31] MEDS: LR 60ML/HR IV SCH (09:35)
[2024-07-31] MEDS ORDERED: PROPOFOL IV EMULSION 10 MG/ML 20 ML VIAL IV ONE ×2 (09:40→12:46)
[2024-07-31] MEDS ORDERED: MIDAZOLAM HCL 1 MG/ML 2ML VIAL ONE (09:40)
[2024-07-31] MEDS ORDERED: ONDANSETRON INJ 2 MG/ML 2 ML VIAL ONE (09:40)
[2024-07-31] MEDS ORDERED: fentaNYL citrate PF 100 MCG/2 ML VIAL ONE (09:40)
[2024-07-31] MEDS ORDERED: LIDOCAINE 2% 2 ML VIAL/AMP(20MG/ML) INFIL ONE (09:40)
[2024-07-31] MEDS: LR 500ML BOLUS, THEN 15ML/HR IV SCH (09:46)
[2024-07-31] MEDS: FAMOTIDINE 20 MG TAB PO SCH (09:47)
[2024-07-31] MEDS: CeleBREX 200 MG CAP PO SCH (09:47)
[2024-07-31] MEDS: METOCLOPRAMIDE HCL 10 MG TABLET PO SCH (09:47)
[2024-07-31] MEDS: dexAMETHasone**PF** 10 MG/ML VIAL IV SCH (09:48)
--- OUTSIDE RECORDS SUMMARY | 2024-07-31 11:08 | External Medical Summary | Summary of Care ---
Author Name Unknown Organization [facility] Address [address] [place] [address] Phone [phone] Care Team Providers Care Cook Chill Technician Name Role Phone Pro, Ambrocio Snyder MD Primary Care Provider [phone] Reason for Visit * Reason Onset Date Comments Appointment 04/24/2024 Encounter Details Date Type Department Care Team ([facility] st Contact Info) Description 04/24/[address] [id number] Services, Scheduling [address] [place] [address] Appointment Allergies No known active allergiesdocumented as of this encounter (statuses as of 07/24/2024) Medications Ibuprofen 600 MG Oral Tablet (Motrin) 3 Active Sildenafil Citrate 50 MG Oral Tablet 1 Tablet. 2 Active Naproxen 500 MG Oral Tablet (Naprosyn) Take 1 Tablet by mouth 2 times a day with morning and evening meals. Active CPAP every night at bedtime. Active Iron 28 MG Oral Tablet Take 1 Tablet by mouth in the morning. Active Vitamin C 100 MG Oral Tablet Take 1 Tablet by mouth in the morning. Active Fish Oil 500 MG Oral Capsule Take 1 Capsule by mouth in the morning. Active D3 50 MCG (2000 UT) Oral Tablet (Cholecalcifer ol) Take by mouth. Active Multi-Vitamin Oral Tablet Take 1 Tablet by mouth in the morning. Active B-12 1000 MCG Oral Capsule Take 1 Capsule by mouth in the morning. Active Folic Acid 1 MG Oral Tablet TAKE 1 TABLET BY MOUTH EVERY MORNING 90 Tablet 3 4 Active Methotrexate Sodium 2.5 MG Oral Tablet TAKE EIGHT TABLETS BY MOUTH ONCE A WEEK 32 Tablet 2 4 06/15/20 24 Discontinued documented as of this encounter (statuses as of 07/24/2024) Active Problems Problem Noted Date Diagnosed Date Status post total right knee replacement 024 RS3PE syndrome (remitting se ronegative symmetrical synovitis with pitting edema) 06/06/2023 Encounter for long-term (current) use of medicat ions 06/06/2023 Hyperlipidemia 02/18/2023 Obstructive sleep apnea 02/18/2023 Periodic limb movement disorder 02/18/2023 Primary osteoarthritis of both knees 02/18/2023 Vitreous hemorrhage 02/12/2014 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 11/2013 documented as of this encounter (statuses as of 07/24/2024) Immunizations Name Administration Dates Next Due COVID-19 mRNA, LNP-s, No Pre serve, 2-Dose Series ([employer]) 10/17/2021,05/13/2021,09/11/2020,2020 Covid-19, Mrna, Lnp-s, Pf, B ivalent, 30 Mcg, IM, 12 yrs and above (Pfizer) 06/03/2022 Pneumococcal Conjugate Vacc, 13 Valent (Prevnar) 10/05/2017 Seasonal Influenza, Quadriva lent Hd (Fluzone Hd) 06/06/2023 Varicella Zoster Vaccine (Adult) 04/01/2016 documented as of this encounter Social History Tobacco Use Types Packs/Day Years Used Date Smoking Tobacco: Never Smokeless Tobacco: Never Alcohol Use Standard Drinks/Week Comments Yes 0 (1 standard drink = 0.6 oz pur e alcohol) occ Sex and Gender Information Value Date Recorded Sex Assigned at Male 04/25/2023 3:12 PM EDT Legal Sex Male 2:24 PM EDT Gender Identity Male 04/25/2023 3:12 PM EDT Sexual Orientation Straight 04/25/2023 3: 12 PM EDT documented as of this encounter Miscellaneous Notes * Telephone Encounter - Toshia Garcia LPN - 04/26/2024 8:35 AM EDT Patient is scheduled 05/02/[address] Jane. * Telephone Encounter - Obdulia Pratt OSA - 04/24/2024 4:20 PM EDT Referring from [facility] for optic nerve edema with Hemorrhaging- reduced vision- 20/50 Next available appointment is in May. Please call patient with appointment- [phone] Jane in 2015. documented in this encounter Plan of Treatment Upcoming Encounters Date Type Department Care Team (Late st Contact Info) Description 06/06/2025 10:20 AM EST Office Visit Rheumatology [place] [id number] [facility] [place] [address] Chetan Wood MD [address] [place] [address] Health Maintenance Due Date Last Done Comments Depression Screening 1963 DTap/Tdap Vaccines (1 - Tdap) 1970 Cologuard 1996 Colonoscopy 1996 Colorectal Cancer Screening 1996 Fecal Occult Blood Test 1996 Sigmoidoscopy 1996 Zoster Vaccines (1 of 2) 05/27/2016 04/01/2016 Pneumococcal Vaccine: 50+ Years (2 of 2 - PPSV23) 11/30/2017 10/05/2017 COVID-19 Vaccine ( season) 2024 06/03/2022, 10/17/2021, 05/13/2021, Additional history exists Lipid Panel 09/29/2028 09/30/2023 Influenza Vaccine (FLU shot) Completed 05/08/2024, 06/06/2023 HPV (Gardasil) Vaccine Aged Out No lo nger eligible based on patient's age to complete this topic Hepatitis B Vaccine Aged Out No longe r eligible based on patient's age to complete this topic MENINGOCOCCAL (MENACTRA/MENVEO) Aged Out No longer eligible based on patient's age to complete this topic documented as of this encounter Medical Devices Not on filedocumented as of this encounter Care Teams Cook Chill Technician Relationship Specialty Start Date End Date Pro, Ambrocio Snyder MD [address] [place] [place] [address] PCP - General Internal Medicine 09/25/15 documented as of this encounter
[2024-07-31] MEDS: ceFAZolin 2000MG 2,000 MG/15 ML SYR IV SCH ×2 (11:15→20:26)
[2024-07-31] MEDS: ROPIV 0.5% 246mg, Ketorolac 30mg, EPINEPHrine 0.5mg in NSS INFIL SCH (11:50)
[2024-07-31] MEDS: ORTHO JOINT ANESTHETIC ONE (11:51)
[2024-07-31] MEDS ORDERED: PHENYLEPHRINE 100MCG/ML 5ML SYR ONE (12:04)
[2024-07-31] MEDS: TRANEXAMIC ACID 1,000 MG **IV Intra-op IV SCH (12:19)
--- NOTE | 2024-07-31 13:24 | Operative Report ---
PG Post Operative Report Pre & Post Diagnosis Operation Date: 07/31/24 10:40 Pre-Op Diagnosis: Left Knee Osteoarthritis Post-Op Diagnosis: Left Knee Osteoarthritis I identified the patient and participated in the time-out.: Yes Procedure Operation Date: 07/31/24 10:40 Actual Procedures p Left Total Knee Arthroplasty(Left) - Ankur Ignacio MD Surgeon Ankur Ignacio MD Peripatologist Tal Rae PA-C Estimated Blood Loss 50 Findings Consistent with Post-Op Diagnosis Operative findings were advanced left knee DJD. Extensive grade 4 [id number] disease the entire medial compartment including the medial femoral condyle and medial tibial plateau. He had varus deformity to his knee. Moderate-sized knee joint effusion. Less severe changes in the patellofemoral and lateral compartment. Specimens Left knee sent for pathology. Anesthesia Type Spinal MAC Complications none Indications The patient is a 74-year-old gentleman whose had a long history of bilateral knee pain discomfort described to gotten worse over time. He has been through extensive conservative over the years with injection treatment as well as oral medicines. This became less successful with time. He had his right knee replaced about a year ago and is done well with that. They continue to be limited by left knee pain. X-rays show advanced left knee arthritis. He elected proceed with surgical treatment. Description of Procedure Operative implants consists of: 1 Biomet Vanguard size 75 left posterior stabilized femoral component. 2. Biomet size 83 tibial tray. 3. 10 mm posterior Byce polyethylene insert. 4. 37 x 10 all poly patella. The patient was taken the op room, identified, placed on the operating table in the supine position. All contact areas were appropriately padded. IV antibiotics provided by anesthesia team. A spinal anesthetic and adductor canal block had been provided in the holding area. A left thigh turn was then placed. The left lower extremity was then prepped and draped in usual sterile fashion. The left leg was elevated and exsanguinated with use of an Esmarch and a turn was placed at 300 mmHg. An anterior approach to the left knee was then performed to longitudinal incision centered over the patella. Sharp dissection was got through subcutaneous tissue down the extensor mechanism. A medial parapatellar arthrotomy incision was made. Some subperiosteal dissection was carried out medially. The fat pad was resected munis patella tendon. The lateral patellofemoral ligament was released. Patella subluxated laterally and the knee was flexed. The osteophytes were taken off distal femur. The ACL and PCL were then released from the distal femur and the tibia subluxated anteriorly. The external tibial alignment jig was then placed on the anterior face the tibia and adjusted 14 mm medially. Proximal tibial cut was made essentially flush with the most efficient aspect of the medial tibial plateau. Some osteophytes taken off medially. The tibia sized to a size 63. Attention drawn to the femur. The distal femur examined the sharp drill. Intramedullary canal was suction. A 6 degree left distal femoral cutting block was then pinned placed. The distal femoral cut was made to take an additional 3 mm of bone off distal femur. The femur was then sized to a size 75. The AP cutting block was pinned parallel to the epicondylar axis which was 4 degrees of external rotation. The anterior cut, anterior chamfer, posterior cut, posterior chamfer cuts were made. The box cutting guide was placed and just slight lateral and the box cut was made. The knee was flexed. The remnants of the medial and lateral menisci were excised. The osteophytes were taken off the posterior aspect the femur. A trial femoral component was placed for the tibial tray was pinned Nia external rotation and the drill and stem punch were used to create defect in proximal tibia for the tibial tray. Knee was then trialed and the 10 mm insert fit most appropriately. Attention drawn the patella. The patella was cleaned of all soft tissues. Patella thickness measured 25 mm in thickness was cut down to 14. Was sized to a size 37 patella. The lug holes were drilled for 37 patella. The lateral osteophytes removed. Patella button was placed. Knee was taken through range of motion patella tracked nicely with no thumbs test. Attention was then drawn to placing the permanent components. All trial components were removed. Bone plug was placed in the distal femur limit blood loss. A double batch Palacos G cement was mixed. Biomet Vanguard size 75 left posterior stabilized femoral component, a size 83 tibial tray, a 10 mm posterior stabilized polyethylene insert, and a 37 x 10 all poly patella then cemented in place. The knee was brought out into full extension till cement hardened. Final cement check was then performed. The pericapsular tissues were injected with 100 cc of Ortho mix. Patient did receive 1 g tranexamic acid. The tourniquet was then let down for final treatment time 64 minutes. Hemostasis assured use electrocautery. Extensor Meclomen closed with combination 1 PDS suture #1 Vicryl suture in a [id number] fashion. Extensor Meclomen checked found to be intact with the subcutaneous tissue then closed with 2 Dexon suture in a buried interrupted fashion the skin was closed skin barrington. Leg was then cleaned and dried and a sterile dressing with Xeroform, 4 fours, sterile cast padding, Pratik bandage were applied. Patient transferred to the recovery in stable condition. The patient tolerated the procedure well and there were no complications. Tal Rae, my physician certified registered dental assistant, was present for the entire procedure. His assistance was essential and required for appropriate patient positioning, prepping and draping, surgical exposure, performing the technical details of the operation, placement the implants, closure of the wound, and placement of the sterile bandage. I attest to the content of the Intraoperative Record and any orders documented therein. Any exceptions are noted below.
--- NOTE | 2024-07-31 13:58 | XRay Report ---
XR knee LT 1 or 2V routine CLINICAL HISTORY: Surgical Post Op TECHNIQUE: 2 views of the left knee were obtained. Comparison: Comparison is made to knee radiograph 08/01/2015 FINDINGS: Patient is status post total knee arthroplasty with expected postsurgical changes including soft tiss ue swelling and subcutaneous emphysema. No periarticular lucency or hardware fracture is seen. IMPRESSION: Expected postoperative appearance status post placement of total knee arthroplasty. ACT 112: Negative or not required by law. Electronically signed by: Joe Alonso M.D. 07/31/2024 1:56 PM
--- NOTE | 2024-07-31 14:07 | Anesthesiology Progress Note ---
Date of Service July 31, 2024 Anesthesia Post Procedure Vital Signs Vital Signs: Temp Pulse Resp BP Pulse Ox O2 Del Method O2 Flow Rate 07/31/24 13:55 84 13 106/62 95 Room Air 07/31/24 13:45 81 14 109/58 L 92 Room Air 07/31/24 13:35 84 18 106/57 L 92 Room Air 07/31/24 13:25 81 16 93/54 L 96 Oxymask 10 07/31/24 13:17 36.4 C L 86 19 109/53 L 94 Oxymask 10 07/31/24 09:22 36.9 C 75 20 144/84 H 96 Room Air Pain Intensity Left Knee: Pain Intensity: 6 Transfer of Care Handoff Completed per policy Notes Mental Status: alert / awake / arousable Patient Amnestic to Procedure: Yes Nausea / Vomiting: adequately controlled Pain: adequately controlled Airway Patency, RR, SpO2: stable & adequate BP & HR: stable & adequate Hydration State: stable & adequate Neuraxial Anesthesia: was administered and sensory block is resolving Anesthetic Complications: no major complications apparent and Pt Satisfied with anesthetic care
[2024-07-31] MEDS ORDERED: METOCLOPRAMIDE HCL INJ 5 MG/ML 2 ML VIAL IV PRN (15:28)
[2024-07-31] MEDS ORDERED: HYDROmorphone INJ 0.5 MG/0.5 ML SYR IV PRN (15:28)
[2024-07-31] MEDS ORDERED: bisacodyL 10 MG SUPP PR PRN (15:28)
[2024-07-31] MEDS ORDERED: ALUMINUM/MAGNESIUM SUSP 30 ML UDC PO PRN (15:28)
[2024-07-31] MEDS ORDERED: MAGNESIUM HYDROXIDE SUSP 30 ML UDC PO PRN (15:28)
[2024-07-31] MEDS ORDERED: NON-FORMULARY MEDICATION (Sildenafil 50 mg tablet) PO PRN (15:28)
[2024-07-31] MEDS ORDERED: NALOXONE HCL 0.4 MG/1 ML VIAL/CARP IV PRN (15:28)
[2024-07-31] MEDS ORDERED: ACETAMINOPHEN 500 MG TAB PO SCH ×2 (15:28→16:00)
[2024-07-31] MEDS: KETOROLAC TROMETHAMINE 15 MG/ML VIAL IV SCH (16:07)
[2024-07-31] MEDS: ASCORBIC ACID 500 MG TAB PO SCH (17:38)
[2024-07-31] MEDS: TRANEXAMIC ACID / 0.7% NACL 1,000 MG/100 ML BAG IV SCH (18:24)
[2024-07-31] MEDS: ASPIRIN 81 MG ECTAB PO SCH (20:28)
[2024-07-31] MEDS: SENNA 8.6 MG TAB PO SCH (20:29)
[2024-07-31] MEDS: DOCUSATE SODIUM 100 MG CAP PO SCH (20:29)
[2024-07-31] MEDS ORDERED: SENNA 8.6 MG TAB PO SCH (21:00)
[2024-07-31 23:23] VITALS: RESP 16
[2024-08-01 06:57] LABS: Hematocrit (blood only) 32.7 % (42.0-52.0); Hemoglobin 11.8 g/dl (14.0-18.0); Mean Corpuscular Hemoglobin 32.8 pg (25.0-34.0); Mean Corpuscular Hgb Conc 36.1 g/dL (32.0-36.0); Mean Corpuscular Volume 90.8 fL (80.0-100.0); Mean Platelet Volume 9.9 fL (9.4-12.4); Platelet Count 244 K/uL (130-400); RDW Coefficient of Variation 13.8 % (11.5-14.5); RDW Standard Deviation 45.9 fL (36.4-46.3); White Blood Count 17.15 K/ul (4.8-10.8)
[2024-08-01 07:14] LABS: BUN Creatinine Ratio 20.9 (10-20); Calcium 8.7 mg/dl (8.6-10.3); Creatinine Clr Calc Pharmacy 73.4 ml/min; Potassium 4.6 mmol/L (3.5-5.1)
[2024-08-01 07:59] VITALS: PULSE 85; TEMP 98.4; O2SAT 93
[2024-08-01] MEDS: dexAMETHasone 10 MG in SYRINGE 0 ML IV SCH (08:10)
[2024-08-01] MEDS: amLODIPine BESYLATE 5 MG TAB PO SCH (08:11)
[2024-08-01] MEDS: CHOLECALCIFEROL 25 MCG (1000 UNITS) TAB PO SCH (08:11)
[2024-08-01] MEDS: TAMSULOSIN HCL 0.4 MG CAP PO SCH (08:11)
[2024-08-01] MEDS: ROSUVASTATIN CALCIUM 5 MG TAB PO SCH (08:11)
[2024-08-01] MEDS: OMEGA-3 (PURIFIED FISH OIL) 1 GM CAP PO SCH (08:11)
[2024-08-01] MEDS: CYANOCOBALAMIN (B-12) 500 MCG TABLET PO SCH (08:11)
[2024-08-01] MEDS: FERROUS SULFATE 325 MG TAB PO SCH (08:11)
[2024-08-01] MEDS: FOLIC ACID 1 MG TAB PO SCH (08:11)
[2024-08-01] MEDS: MULTIVITAMIN TAB PO SCH (08:12)
[2024-08-01] MEDS ORDERED: NON-FORMULARY MEDICATION (Ascorbic Acid (Vitamin C) [Vitamin C] 1,000 mg Tablet) PO SCH (09:00)
--- NOTE | 2024-08-01 09:03 | Orthopedic Progress Note ---
Date of Service August 01, 2024 Assessment & Plan (1) Status post left knee replacement: Assessment: Status post left knee replacement. Plan: Overall, he is doing quite well today with good pain control to the left knee. He will work with physical therapy later this morning to work on ambulation and range of motion exercises. He may to be discharged later this morning pending formal physical therapy evaluation and recommendations. 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 He is on aspirin for DVT prophylaxis. Dressings may be changed tomorrow by himself or with the home health team. He should continue restrictions to modify activities that bring on discomfort of the left knee. He was informed continue the rest, ice, and elevation procedures remarkable. He will follow-up with Dr. Ignacio in 2 weeks for postoperative management or sooner if needed. He verbalized understanding and agrees with this plan. Subjective . Delroy was seen resting comfortably at bedside this morning in no apparent distress. He notes that his pain is well-controlled to the left knee. He has been up and out of bed without significant issues. He has yet to work with physical therapy this morning. He denies any concerns or surgical incision site. Denies any active bleeding, discharge, or signs of infection. He denies any other concerns today. Review of Systems All systems reviewed & are unremarkable except as noted in HPI & below. Physical Exam . On physical examination of the left knee, dressings are clean, dry, and intact. There is no signs of active bleeding, discharge, or signs of infection. His leg is out in full extension. Limited range of motion secondary to postoperative stiffness and soreness. Calf soft nontender to palpation. Negative Homans' sign. Intact plantarflexion and dorsiflexion to the left ankle. +2 DP and PT pulses. Less than 2-second capillary refill. Normal sensation. Neurovascular intact. Results & Data Results & Data Laboratory Results . Diagnostic Findings . Knee X-Ray 07/31/24 13:17 XR knee LT 1 or 2V routine CLINICAL HISTORY: Surgical Post Op TECHNIQUE: 2 views of the left knee were obtained. Comparison: Comparison is made to knee radiograph 08/01/2015 FINDINGS: Patient is status post total knee arthroplasty with expected postsurgical changes including soft tissue swelling and subcutaneous emphysema. No periarticular lucency or hardware fracture is seen. IMPRESSION: Expected postoperative appearance status post placement of total knee arthroplasty. ACT 112: Negative or not required by law. Electronically signed by: Joe Alonso M.D. 07/31/2024 1:56 PM PG Care Time/CCT Total # of Minutes Spent Total Time Spent with Patient: Total time spent is greater than 50% in coordination of care (as documented) at patient's floor/unit and/or counseling patient: Coding Level of Care Code 25511 Post Operative Follow-Up Diagnoses Status post left knee replacement Z96.652
--- NOTE | 2024-08-01 09:04 | Discharge Summary ---
Date of Service August 01, 2024 Admission HPI (Per Admitting) . The patient is a 74-year-old gentleman who presents now for surgical treatment of his left knee. He is got a long history of knee problems and had his right knee replaced about a year ago. They continue to be bothered by left knee pain discomfort. Is been through extensive conservative treatment over the years which would become less successful. He now like to proceed with surgical treatment. He is happy with his right knee replacement. Of note, he does have a history of inflammatory arthritis and on medical management for this. Admission Exam (Per Admitting) . Physical examination reveals a pleasant middle-age male who looks in pretty good health. Examination of both [id number] patient walks independently. Examination of the left knee reveals a slight varus alignment to his knee. He is got bony hypertrophy medially. He is got about a 10 degree flexion contracture and bends to about 110. He is got moderate-sized knee effusion. No pain with hip motion. He is neurologically intact. Examination of the right knee reveals well-healed incision. Range of motion 0-1 20. No swelling. No pain with hip motion. Principal Diagnosis Same as "Discharge Diagnosis" noted below under Discharge Instructions. Discharge Exam . On physical examination of the left knee, dressings are clean, dry, and intact. There is no signs of active bleeding, discharge, or signs of infection. His leg is out in full extension. Limited range of motion secondary to postoperative stiffness and soreness. Calf soft nontender to palpation. Negative Homans' sign. Intact plantarflexion and dorsiflexion to the left ankle. +2 DP and PT pulses. Less than 2-second capillary refill. Normal sensation. Neurovascular intact. Discharge Data Procedures Performed Operation Date: 07/31/24 10:40 Actual Procedures p Left Total Knee Arthroplasty(Left) - Ankur Ignacio MD Ordered Studies 07/31/24 05:00 US - OR guided needle placemen Routine Hospital Course (1) Status post left knee replacement: On July 31, 2024 Delroy arrived at [facility] and underwent a left total knee arthroplasty performed by Dr. Ignacio with no complications. He had a spinal anesthetic. Postoperatively, he was started on aspirin for DVT prophylaxis and transferred to the general orthopedic floor in stable condition. His hospital course was uneventful. On postoperative day #1, his vital signs are stable and his pain was well-controlled. He participated well with physical therapy working on ambulation and range of motion exercises. He was then discharged home in stable condition. He will follow-up with Dr. Ignacio in 2 weeks for postoperative management or sooner if needed. PG Care Time/CCT Total # of Minutes Spent Total Time Spent with Patient: Total time spent is greater than 50% in coordination of care (as documented) at patient's floor/unit and/or counseling patient: Discharge Plan Discharge Items Patient Disposition: Home - Home Health Services Reason For Visit: Left Knee Osteoarthritis Discharge Diagnosis: Left Knee Replacement Activity: Per Instructions section Weightbearing: Full weightbearing Non-emergency contact: Surgeon Call non-emergency contact if: you have any medication questions Follow-up/Referrals: ProAmbrocio MD [Primary Care Provider] - Diet: Regular Addtl Attending Provider Instructions: ACTIVITY RECOMMENDATIONS: Diet: * You may resume previous diet. Physical Therapy: * You will go to physical therapy three times each week for four to six weeks after your surgery in order to regain your knee range of motion and to retrain your knee to work properly. * It is just as important to make sure you are getting your knee perfectly straight as it is to regain your knee bend. * Taking a pain pill an hour before therapy can help you have a more productive and comfortable therapy session. Home Exercise: * You were shown a series of exercises (heel props, heel slides, etc.) in the hospital. Do these exercises three to four times each day including the exercises you were shown in physical therapy. Walking: * Get up and walk several times each day. For the first four weeks, try not to stand or walk for more than one hour at a time. If you do stand or walk for more than one hour, you will not hurt anything, but your knee and leg will likely swell. * As you feel comfortable, you may change from the walker or crutches to a cane and then to independent walking. MEDICATIONS: New Medicine: * You will likely be taking one or more of these medications: 1. Oxycodone - A quick and shorter-acting pain medication. Take one to two tablets every six hours to lessen your pain. 2. Aspirin - Thins your blood to lessen the chance of forming a blood clot. * The most common side effects of pain medicine and iron are nausea and constipation. If nausea or constipation is too much of a problem or if you have any questions about your new medicines or doses, call [facility] at . We will try to help you manage these issues. "VERY IMPORTANT TO READ AND REVIEW" Pain: * The immediate post-operative period after knee replacement surgery is often quite painful. * You are given a prescription for pain medicine. You should take it, as directed, when you need it, especially before physical therapy and before going to bed. Pain that interferes with sleep is very common and can last several months. * You will likely need pain medicine for the first four to six weeks. It will not stop all of the pain. The pain will lessen and as you feel better, you may change to milder pain medicine such as Tylenol. * The most common side effects of pain medicine are nausea and constipation, so don't take more than you need. SPECIAL CARE INSTRUCTIONS: TEDs/Elastic Stockings: * The white elastic stockings help limit swelling and prevent blood clots from forming in your legs. The more you wear them, the more they work. * Wear them for six weeks after knee replacement surgery and four weeks after partial knee replacement. Incision Site Care: * Remove dressing postoperative day 2 and then shower. Keep direct shower pressure off the incision site. * After showering, cover barrington with dry gauze and change daily or more frequently if the dressing is getting saturated with drainage. * Use the ARTURO stockings to hold dressing in place. DO NOT apply tape on the skin. * May completely stop using bandage if wound is dry and no drainage * [place] are removed between 2 and 3 weeks post-op. If your follow-up appointment is made before 2 weeks, please have your appointment re- scheduled. It is too early to remove the barrington. Prevention of Infection: * Take antibiotics one hour before any dental cleaning, dental work, urological procedure, gastrointestinal procedure or any invasive surgery in order to prevent your new joint from getting infected. * You may get the antibiotics from the doctor performing the procedure or you may call our office at [phone] before and we will call in a prescrip tion to the pharmacy of your choice. Things to Watch For: * Drainage from the incision site that occurs more than one week after your surgery. * Severely increased knee/leg pain or swelling. * Increased redness at the incision site. * Fever above 102 degrees Fahrenheit. * Unusual chest pain or shortness of breath. * Unusual pain or burning with urination. Call [facility] at [phone] with any of the above problems or if you have any questions about your medicines or recovery. FOLLOW UP VISIT: Make an appointment to see your doctor for approximately two weeks after surgery for a progress check and staple removal by calling the office at [phone]. Pending Studies at Discharge: No Stand-Alone Forms: My [facility], Smoking Cessation Medications and DC Order Prescriptions: Continued (DME) CPAP Machine Misc See Rx Instructions .MEDSUPPLY Qty: 1 0RF Rx Instructions: Auto CPAP 5-15 cm water pressure, C flex setting #2 with heated humidification, tubing, and supplies. KERI: 99+ years. folic acid 1 mg tablet 1 mg PO QAM acetaminophen [Tylenol Extra Strength] 500 mg tablet 1,000 mg PO TID 30 Days Qty: 180 0RF Rx Instructions: Take 3 times per day to lessen pain sildenafil 50 mg tablet 50 mg PO DAILY PRN (Reason: sexual activity) Qty: 10 3RF oxycodone 5 mg tablet 5 - 10 mg PO Q6 PRN (Reason: pain) Qty: 40 0RF Rx Instructions: Take as needed for pain ondansetron 4 mg tablet,disintegrating 4 mg PO Q8 PRN (Reason: nausea) Qty: 20 1RF Rx Instructions: Take as needed for nausea ketorolac 10 mg tablet 10 mg PO Q6 5 Days Qty: 20 0RF Rx Instructions: Take 4 times per day with food for 5 days to lessen pain and swelling. sennosides [Senokot] 8.6 mg tablet 8.6 mg PO BID 14 Days Qty: 28 0RF Rx Instructions: Take two times a day to prevent/treat constipation acetaminophen [Tylenol Extra Strength] 500 mg tablet 1,000 mg PO TID 30 Days Qty: 180 0RF Rx Instructions: Take 3 times per day to lessen pain aspirin [Glory Low Dose Aspirin] 81 mg tablet,delayed release (DR/EC) 81 mg PO BID 45 Days Qty: 90 0RF Rx Instructions: Take to prevent blood clots. cefadroxil 500 mg capsule 500 mg PO BID 7 Days Qty: 14 0RF Rx Instructions: Take 1 cap twice a day to prevent infection tamsulosin [Flomax] 0.4 mg capsule 0.4 mg PO DAILY Qty: 7 0RF Rx Instructions: Begin night BEFORE surgery to prevent urinary retention methotrexate sodium 2.5 mg Tablet 2.5 mg PO UD Patient Comments: 8 tabs on Tuesdays, once weekly amlodipine 5 mg tablet 5 mg PO QAM rosuvastatin 5 mg tablet 5 mg PO QAM cyanocobalamin (vitamin B-12) [Vitamin B-12] 1,000 mcg Tablet 1,000 mcg PO QAM ferrous sulfate [iron] 325 mg (65 mg iron) Tablet 325 mg PO QAM cholecalciferol (vitamin D3) [Vitamin D3] 25 mcg (1,000 unit) Tablet,Chewable 25 mcg PO QAM ascorbic acid (vitamin C) [Vitamin C] 1,000 mg Tablet 1 g PO QAM Fish Oil Concentrate Capsule 1,000 mg PO QAM aspirin 81 mg Tablet 81 mg PO DAILY Discontinued ibuprofen 600 mg tablet 600 mg PO Q6H PRN (Reason: Pain) Qty: 90 0RF Admission Data Admit Date/Time: 07/31/24 13:17 Attending Provider: Ankur Ignacio Admit Provider: Ankur Ignacio Primary Care Provider: Ambrocio Gupta Other Providers: [facility]
[2024-08-01 10:14] VITALS: BP 123/62
[2024-08-01] MEDS: oxyCODONE HCL IR 5 MG TAB (IMMEDIATE RELEASE) PO PRN (11:28)
== END 2024-08-01 12:01 | disposition home health service (06) ==
LOC: ASU 08:52 → 3E 08:52
DX: Z79.82 Long term (current) use of aspirin; E78.5 Hyperlipidemia, unspecified; Z79.899 Other long term (current) drug therapy; G25.81 Restless legs syndrome; R73.03 Prediabetes; M21.162 Varus deformity, not elsewhere classified, left knee; M06.062 Rheumatoid arthritis without rheumatoid factor, left knee; I10 Essential (primary) hypertension; M25.762 Osteophyte, left knee; M25.462 Effusion, left knee; M17.12 Unilateral primary osteoarthritis, left knee; Z96.651 Presence of right artificial knee joint; G47.33 Obstructive sleep apnea (adult) (pediatric)